=== PATIENT | female | born 1945 | race Caucasian/White ===

== ENCOUNTER 2017-10-21 08:38 | Emergency (ER) | payer MEDICARE, MEDICAID ==
[2017-10-21 09:12] VITALS: BP 166/89
[2017-10-21] MEDS ORDERED: Ondansetron 4 MG Tab.DIS PO ONE (09:17)
[2017-10-21] MEDS ORDERED: Acetaminophen Soln 650 MG/20.3 ML UD Cup PO ONE (09:17)
--- NOTE | 2017-10-21 09:22 | EDM.PDOC ---
ED HPI GENERAL MEDICAL PROBLEM - General Chief Complaint: Headache Stated Complaint: BAD HEADACHE Time Seen by Provider: 10/21/17 09:21 Source of Information: Reports: Patient History Limitations: Reports: No Limitations - History of Present Illness INITIAL COMMENTS - FREE TEXT/NARRATIVE: pt ended up with a headache in the middle of the nite. She had just started zantac 2 days ago. She was wondering if the headache was related to that. She is still nauseated today. She has not vomited. Onset: Today, Other (headache started in the nite. It is now going wenceslao. ) Duration: Hour(s): Location: Reports: Head, Neck, Abdomen Associated Symptoms: Reports: Headaches, Nausea/Vomiting Lower Back Pain Score (Numeric/FACES): 5 Posterior Headache Pain Score (Numeric/FACES): 9 - Related Data Allergies Allergy/AdvReac Type Severity Reaction Status Date / Time levofloxacin [From Levaquin] Allergy Rash Verified 10/21/17 08:50 nitrofurantoin Allergy Hives Verified 10/21/17 08:50 Penicillins Allergy Rash Verified 10/21/17 08:50 Sulfa (Sulfonamide Allergy Rash Verified 10/21/17 08:50 Antibiotics) oats AdvReac Stomach Verified 10/21/17 08:50 Upset Home Meds: Home Meds Alum Hydrox/Mag Hydrox/Simeth [Maalox Advanced] 15 ml PO ASDIRECTED 05/03/15 [ History] Mag Carb/Al Hydrox/Alginic Ac [Gaviscon Extra Strength Liquid] 30 ml PO BEDTIME 05/03/15 [History] Loperamide [Imodium AD] 2 mg PO ASDIRECTED PRN 05/07/15 [History] Sucralfate [Carafate] 1 gm PO Q6H 05/07/15 [History] Omeprazole [Prilosec] 40 mg PO DAILY 05/24/15 [History] Ranitidine [Zantac] 10 mg PO BID 10/21/17 [History] Past Medical History HEENT History: Reports: Glaucoma, Impaired Vision Cardiovascular History: Reports: Other (See Below) Other Cardiovascular History: rheumatic fever and rheumatic heart disease as child. 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: Musculoskeletal History: Reports: Other (See Below) Other Musculoskeletal History: Muscular dystrophy Neurological History: Reports: Headaches, Chronic Psychiatric History: Reports: Anxiety, Panic Attack Endocrine/Metabolic History: Reports: Other (See Below) Other Endocrine/Metabolic History: hyoglycemia- Hematologic History: Reports: Anemia Oncologic (Cancer) History: Reports: Other (See Below) Other Oncologic History: skin Dermatologic History: Reports: Melanoma, Other (See Below) Other Dermatologic History: skin lesions removed from lip, inner right thigh and left foot - Infectious Disease History Infectious Disease History: Reports: Chicken Pox, Measles, Mumps, Rheumatic Fever - Past Surgical History Head Surgeries/Procedures: Reports: None HEENT Surgical History: Reports: Oral Surgery Cardiovascular Surgical History: Reports: None GI Surgical History: Reports: Appendectomy, Cholecystectomy, EGD, Hernia Repair/ Other, Other (See Below) Endocrine Surgical History: Reports: None Neurological Surgical History: Reports: None Musculoskeletal Surgical History: Reports: None Oncologic Surgical History: Reports: None Dermatological Surgical History: Reports: Skin Biopsy Social & Family History - Family History Cardiac: Reports: CAD, Heart Valve Replacement, Hypertension, [place] GI: Reports: Cholelithiasis, GERD Oncologic: Reports: Lymphoma, Ovarian - Tobacco Use Smoking Status *Q: Former Smoker Years of Tobacco use: 40 Used Tobacco, but Quit: Yes Month/Year Tobacco Last Used: 1990 Second Hand Smoke Exposure: No - Caffeine Use Caffeine Use: Reports: Coffee, Tea - Recreational Drug Use Recreational Drug Use: No ED ROS GENERAL - Review of Systems Review Of Systems: See Below Constitutional: Reports: No Symptoms HEENT: Reports: No Symptoms Respiratory: Reports: No Symptoms Cardiovascular: Reports: No Symptoms Endocrine: Reports: No Symptoms GI/Abdominal: Reports: Other (pt does not have pain or heartburn. She is feeling nauseated. ) : Reports: No Symptoms Musculoskeletal: Reports: No Symptoms Skin: Reports: No Symptoms Neurological: Reports: No Symptoms - Physical Exam Exam: See Below Text/Narrative:: pt is alert and feels like her headache is getting better. She is still nauseated. She is on prilosec for her stomach. Exam Limited By: No Limitations General Appearance: Alert, Anxious, Moderate Distress Ears: Normal TMs Nose: Normal Inspection Throat/Mouth: Normal Inspection Head Exam: Atraumatic Neck: Tender Lateral Respiratory/Chest: No Respiratory Distress Cardiovascular: Regular Rate, Rhythm GI/Abdominal: Soft, Non-Tender (Female) Exam: Deferred Rectal (Female) Exam: Deferred Neuro Exam (Abbreviated): Alert, Oriented, Normal Cognition Back Exam: Muscle Spasm, Other ( chronic back pain) Psychiatric: Anxious Course - Vital Signs Last Recorded V/S: Last Vital Signs Temp 35.9 C 10/21/17 09:02 Pulse 107 H 10/21/17 09:02 Resp 16 10/21/17 09:02 BP 166/89 H 10/21/17 09:02 Pulse Ox 96 10/21/17 09:02 - Orders/Labs/Meds Meds: Medications Discontinued Medications Generic Name Dose Route Start Last Admin Trade Name Freq PRN Reason Stop Dose Admin Acetaminophen 650 mg 10/21/17 09:17 10/21/17 09:21 Tylenol PO 10/21/17 09:18 650 mg ONETIME ONE Administration Ondansetron HCl 4 mg 10/21/17 09:17 10/21/17 09:21 Zofran Odt PO 10/21/17 09:18 4 mg ONETIME ONE Administration - Re-Assessments/Exams Free Text/Narrative Re-Assessment/Exam: 10/21/17 09:52 pt was given zoforan and tylenol and she is feeling better at this time. Departure - Departure Time of Disposition: 09:52 Disposition: Home, Self-Care 01 Condition: Fair Clinical Impression: Nausea, Headache - Discharge Information Referrals: Adán Mayfield MD [Primary Care Provider] - Forms: ED Department Discharge Care Plan Goals: stop zantac, zoforan 4 mg q6h prn for nausea. continue other meds.
== END 2017-10-21 10:00 | disposition home or self-care (01) ==
LOC: JP.ED 08:38
DX: R51 Headache (principal); R11.0 Nausea; Z87.891 Personal history of nicotine dependence; K21.9 Gastro-esophageal reflux disease without esophagitis; Z79.899 Other long term (current) drug therapy; Z91.018 Allergy to other foods; Z88.1 Allergy status to other antibiotic agents; Z88.2 Allergy status to sulfonamides; Z88.0 Allergy status to penicillin; Z88.8 Allergy status to other drugs, medicaments and biological substances
CPT/HCPCS: 99284; A9270

== ENCOUNTER 2018-03-24 13:45 | Emergency (ER) | payer MEDICARE, MEDICAID ==
[2018-03-24 14:07] VITALS: BP 166/88
--- NOTE | 2018-03-24 14:32 | EDM.PDOC ---
ED HPI GENERAL MEDICAL PROBLEM - General Chief Complaint: Respiratory Problem Stated Complaint: HEAVINESS IN CHEST Time Seen by Provider: 03/24/18 14:30 Source of Information: Reports: Patient History Limitations: Reports: No Limitations - History of Present Illness INITIAL COMMENTS - FREE TEXT/NARRATIVE: pt began to feel achy during the nite. She then started to cough and feel tight in her hest. The coughing has been progrssive this afternoon. Onset: Other ( started last nite. ) Duration: Hour(s): Location: Reports: Abdomen Associated Symptoms: Reports: Cough, Other ( chest feels tight. ) - Related Data Allergies Allergy/AdvReac Type Severity Reaction Status Date / Time levofloxacin [From Levaquin] Allergy Rash Verified 03/24/18 14:10 nitrofurantoin Allergy Hives Verified 03/24/18 14:10 Penicillins Allergy Rash Verified 03/24/18 14:10 Sulfa (Sulfonamide Allergy Rash Verified 03/24/18 14:10 Antibiotics) oats AdvReac Stomach Verified 03/24/18 14:10 Upset Home Meds: Home Meds Alum Hydrox/Mag Hydrox/Simeth [Maalox Advanced] 15 ml PO ASDIRECTED 05/03/15 [ History] Mag Carb/Al Hydrox/Alginic Ac [Gaviscon Extra Strength Liquid] 30 ml PO BEDTIME 05/03/15 [History] Loperamide [Imodium AD] 2 mg PO ASDIRECTED PRN 05/07/15 [History] Sucralfate [Carafate] 1 gm PO Q6H PRN 05/07/15 [History] Omeprazole [Prilosec] 40 mg PO DAILY 05/24/15 [History] Ranitidine [Zantac] 10 mg PO BID 10/21/17 [History] Past Medical History HEENT History: Reports: Glaucoma, Impaired Vision Cardiovascular History: Reports: Other (See Below) Other Cardiovascular History: rheumatic fever and rheumatic heart disease as child. 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: Musculoskeletal History: Reports: Other (See Below) Other Musculoskeletal History: Muscular dystrophy Neurological History: Reports: Headaches, Chronic Psychiatric History: Reports: Anxiety, Panic Attack Endocrine/Metabolic History: Reports: Other (See Below) Other Endocrine/Metabolic History: hyoglycemia- Hematologic History: Reports: Anemia Oncologic (Cancer) History: Reports: Other (See Below) Other Oncologic History: skin Dermatologic History: Reports: Melanoma, Other (See Below) Other Dermatologic History: skin lesions removed from lip, inner right thigh and left foot - Infectious Disease History Infectious Disease History: Reports: Chicken Pox, Measles, Mumps, Rheumatic Fever - Past Surgical History Head Surgeries/Procedures: Reports: None HEENT Surgical History: Reports: Oral Surgery Cardiovascular Surgical History: Reports: None GI Surgical History: Reports: Appendectomy, Cholecystectomy, EGD, Hernia Repair/ Other, Other (See Below) Endocrine Surgical History: Reports: None Neurological Surgical History: Reports: None Musculoskeletal Surgical History: Reports: None Dermatological Surgical History: Reports: Skin Biopsy Social & Family History - Family History Cardiac: Reports: CAD, Heart Valve Replacement, Hypertension, [place] GI: Reports: Cholelithiasis, GERD Oncologic: Reports: Lymphoma, Ovarian - Tobacco Use Smoking Status *Q: Never Smoker - Caffeine Use Caffeine Use: Reports: Coffee, Tea ED ROS GENERAL - Review of Systems Review Of Systems: See Below Constitutional: Reports: Fever, Chills, Malaise HEENT: Reports: No Symptoms Respiratory: Reports: Cough, Other ( tight chest) Cardiovascular: Reports: No Symptoms Endocrine: Reports: No Symptoms GI/Abdominal: Reports: No Symptoms : Reports: No Symptoms ED EXAM, GENERAL - Physical Exam Exam: See Below Free Text/Narrative:: pt developed a cough and felt achy all over. She has a low grade temp at 99. She did not have a flu shot. Exam Limited By: No Limitations General Appearance: Alert, No Apparent Distress, Anxious Ears: Normal TMs Nose: Normal Inspection Throat/Mouth: Normal Inspection Head: Atraumatic Neck: Normal Inspection Respiratory/Chest: Crackles, Rhonchi, Other ( These were heard in the upper lung reid. ) Cardiovascular: Regular Rate, Rhythm GI/Abdominal: Soft, Non-Tender Course - Vital Signs Last Recorded V/S: Last Vital Signs Temp 37.2 C 03/24/18 14:18 Pulse 109 H 03/24/18 14:18 Resp 11 L 03/24/18 14:18 BP 166/88 H 03/24/18 14:18 Pulse Ox 97 03/24/18 14:18 - Orders/Labs/Meds Labs: Laboratory Tests 03/24/18 Range/Units 14:30 WBC 8.8 (4.5-11.0) K/uL RBC 4.53 (3.30-5.50) M/uL Hgb 13.7 (12.0-15.0) g/dL Hct 41.5 (36.0-48.0) % MCV 92 (80-98) fL MCH 30 (27-31) pg MCHC 33 (32-36) % Plt Count 312 (150-400) K/uL Neut % (Auto) 79 H (36-66) % Lymph % (Auto) 8 L (24-44) % [place] % (Auto) 10 H (2-6) % Eos % (Auto) 3 (2-4) % Baso % (Auto) 1 (0-1) % - Re-Assessments/Exams Free Text/Narrative Re-Assessment/Exam: 03/24/18 15:08 Influ a and b were neg. Her wbc was not markedly elevated. Departure - Departure Time of Disposition: 15:10 Disposition: Home, Self-Care 01 Condition: Fair Clinical Impression: Bronchitis - Discharge Information Referrals: Adán Mayfield MD [Primary Care Provider] - Forms: ED Department Discharge Care Plan Goals: push fluids, cool mist humidifier, zithromax-- ravinder chinchilla ac 1 tsp q6h prn for cough.
== END 2018-03-24 15:21 | disposition home or self-care (01) ==
LOC: JP.ED 13:45
DX: J40 Bronchitis, not specified as acute or chronic (principal); K21.9 Gastro-esophageal reflux disease without esophagitis; F41.9 Anxiety disorder, unspecified; Z88.1 Allergy status to other antibiotic agents; Z88.0 Allergy status to penicillin; Z88.2 Allergy status to sulfonamides; Z79.899 Other long term (current) drug therapy
CPT/HCPCS: 36415; 85025; 87804; 87804-59; 99285

== ENCOUNTER 2018-03-28 11:55 | Emergency (ER) | payer MEDICARE, MEDICAID ==
[2018-03-28 13:12] VITALS: BP 137/78
--- NOTE | 2018-03-28 13:26 | EDM.PDOC ---
ED HPI GENERAL MEDICAL PROBLEM - General Chief Complaint: Respiratory Problem Stated Complaint: CHEST COLD Time Seen by Provider: 03/28/18 13:19 Source of Information: Reports: Patient, Old Records, RN Notes Reviewed History Limitations: Reports: No Limitations - History of Present Illness INITIAL COMMENTS - FREE TEXT/NARRATIVE: 72-year-old female presents emergency department day complaint of shortness of breath she was in the ED 5 days prior diagnosed with bronchitis started on antibiotic of azithromycin she states is completed a course of antibiotics however just does not feel any better and feels she is getting worse - Related Data Allergies Allergy/AdvReac Type Severity Reaction Status Date / Time levofloxacin [From Levaquin] Allergy Rash Verified 03/28/18 13:12 nitrofurantoin Allergy Hives Verified 03/28/18 13:12 Penicillins Allergy Rash Verified 03/28/18 13:12 Sulfa (Sulfonamide Allergy Rash Verified 03/28/18 13:12 Antibiotics) oats AdvReac Stomach Verified 03/28/18 13:12 Upset Home Meds: Home Meds Alum Hydrox/Mag Hydrox/Simeth [Maalox Advanced] 15 ml PO ASDIRECTED 05/03/15 [ History] Mag Carb/Al Hydrox/Alginic Ac [Gaviscon Extra Strength Liquid] 30 ml PO BEDTIME 05/03/15 [History] Loperamide [Imodium AD] 2 mg PO ASDIRECTED PRN 05/07/15 [History] Sucralfate [Carafate] 1 gm PO Q6H PRN 05/07/15 [History] Omeprazole [Prilosec] 40 mg PO DAILY 05/24/15 [History] Ranitidine [Zantac] 10 mg PO BID PRN 10/21/17 [History] Albuterol [Proventil HFA] 2 puff INH Q4H PRN #1 inhaler 03/28/18 [Rx] Azithromycin [Zithromax 200 MG/5 ML Susp] 6 ml PO DAILY 03/28/18 [History] Past Medical History HEENT History: Reports: Glaucoma, Impaired Vision Cardiovascular History: Reports: Other (See Below) Other Cardiovascular History: rheumatic fever and rheumatic heart disease as child. 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: Musculoskeletal History: Reports: Other (See Below) Other Musculoskeletal History: Muscular dystrophy Neurological History: Reports: Headaches, Chronic Psychiatric History: Reports: Anxiety, Panic Attack Endocrine/Metabolic History: Reports: Other (See Below) Other Endocrine/Metabolic History: hyoglycemia- Hematologic History: Reports: Anemia Oncologic (Cancer) History: Reports: Other (See Below) Other Oncologic History: skin Dermatologic History: Reports: Melanoma, Other (See Below) Other Dermatologic History: skin lesions removed from lip, inner right thigh and left foot - Infectious Disease History Infectious Disease History: Reports: Chicken Pox, Measles, Mumps, Rheumatic Fever - Past Surgical History HEENT Surgical History: Reports: Oral Surgery GI Surgical History: Reports: Appendectomy, Cholecystectomy, EGD, Hernia Repair/ Other, Other (See Below) Dermatological Surgical History: Reports: Skin Biopsy Social & Family History - Family History Cardiac: Reports: CAD, Heart Valve Replacement, Hypertension, [place] GI: Reports: Cholelithiasis, GERD Oncologic: Reports: Lymphoma, Ovarian - Tobacco Use Smoking Status *Q: Never Smoker - Caffeine Use Caffeine Use: Reports: Coffee, Tea - Recreational Drug Use Recreational Drug Use: No ED ROS GENERAL - Review of Systems Review Of Systems: See Below Constitutional: Reports: Weakness. Denies: Fever, Chills HEENT: Reports: No Symptoms Respiratory: Reports: Shortness of Breath, Cough, Sputum (Yellow) Cardiovascular: Reports: Dyspnea on Exertion GI/Abdominal: Reports: No Symptoms : Reports: No Symptoms ED EXAM, GENERAL - Physical Exam Exam: See Below Exam Limited By: No Limitations General Appearance: Alert, WD/WN, No Apparent Distress Throat/Mouth: Normal Inspection, Normal Lips, Normal Teeth, Normal Gums, Normal Oropharynx, Normal Voice, No Airway Compromise Head: Atraumatic, Normocephalic Neck: Normal Inspection, Supple, Non-Tender, Full Range of Motion Respiratory/Chest: No Respiratory Distress, Lungs Clear, Normal Breath Sounds, No Accessory Muscle Use, Chest Non-Tender Cardiovascular: Regular Rate, Rhythm, No Murmur GI/Abdominal: Soft, Non-Tender Course - Vital Signs Last Recorded V/S: Last Vital Signs Temp 96.0 F 03/28/18 13:17 Pulse 89 03/28/18 13:17 Resp 16 03/28/18 13:17 BP 137/78 03/28/18 13:17 Pulse Ox 96 03/28/18 13:17 - Orders/Labs/Meds Orders: Active Orders 24 hr Category Date Time Status RT Aerosol Therapy [RC] ASDIRECTED Care 03/28/18 13:53 Active Chest 2V [CR] Urgent Exams 03/28/18 13:24 Taken Labs: Laboratory Tests 03/28/18 03/28/18 03/28/18 Range/Units 13:42 13:42 13:42 WBC 3.5 L (4.5-11.0) K/uL RBC 4.57 (3.30-5.50) M/uL Hgb 14.2 (12.0-15.0) g/dL Hct 42.2 (36.0-48.0) % MCV 92 (80-98) fL MCH 31 (27-31) pg MCHC 34 (32-36) % Plt Count 265 (150-400) K/uL Neut % (Auto) 42 (36-66) % Lymph % (Auto) 31 (24-44) % [place] % (Auto) 25 H (2-6) % Eos % (Auto) 1 L (2-4) % Baso % (Auto) 1 (0-1) % D-Dimer, Quantitative < 100 (0.0-400.0) ng/mL Sodium 138 L (140-148) mmol/L Potassium 3.9 (3.6-5.2) mmol/L Chloride 100 (100-108) mmol/L Carbon Dioxide 31 (21-32) mmol/L Anion Gap 10.9 (5.0-14.0) mmol/L BUN 13 (7-18) mg/dL Creatinine 0.8 (0.6-1.0) mg/dL Est Cr Clr Drug Dosing 51.03 mL/min Estimated GFR (MDRD) > 60 (>60) Glucose 112 H (74-106) mg/dL Calcium 8.9 (8.5-10.1) mg/dL Total Bilirubin 0.3 (0.2-1.0) mg/dL AST 22 (15-37) U/L ALT 25 (12-78) U/L Alkaline Phosphatase 148 H (46-116) U/L Total Protein 6.7 (6.4-8.2) g/dL Albumin 3.2 L (3.4-5.0) g/dL Globulin 3.5 (2.3-3.5) g/dL Albumin/Globulin Ratio 0.9 L (1.2-2.2) Meds: Medications Discontinued Medications Generic Name Dose Route Start Last Admin Trade Name Cecily PRN Reason Stop Dose Admin Albuterol/Ipratropium 3 ml 03/28/18 13:52 03/28/18 14:04 Duoneb 3.0-0.5 Mg/3 Ml NEB 03/28/18 13:53 3 ml ONETIME ONE Administration Departure - Departure Time of Disposition: 14:44 Disposition: Home, Self-Care 01 Condition: Fair Clinical Impression: Bronchitis - Discharge Information Prescriptions: Albuterol [Proventil HFA] 2 puff INH Q4H PRN #1 inhaler PRN Reason: Shortness Of Breath Referrals: Adán Mayfield MD [Primary Care Provider] - Forms: ED Department Discharge Additional Instructions: Use your albuterol inhaler as needed, this medication was faxed to [facility], please follow-up with your primary care the next 3-5 days for reevaluation - My Orders Last 24 Hours: My Active Orders 03/28/18 13:24 Chest 2V [CR] Urgent 03/28/18 13:53 RT Aerosol Therapy [RC] ASDIRECTED - Assessment/Plan Last 24 Hours: My Active Orders 03/28/18 13:24 Chest 2V [CR] Urgent 03/28/18 13:53 RT Aerosol Therapy [RC] ASDIRECTED Plan: Assessment Acuity = acute Site and laterality = bronchitis Etiology = unknown etiology Manifestations = weakness, dyspnea Location of injury = Home Lab values = CBC, CMP, d-dimer all within normal limits lab values are similar to prior lab values 5 days ago chest x-ray shows no acute process official read radiology is pending Plan She had some improvement with albuterol inhaler prescription written for albuterol MDI 2 puffs every 4-6 hours when necessary 1 unit follow-up primary care 3-5 days if no improvement This note was dictated using [employer] voice recognition software please call with any questions on syntax or grammar.
[2018-03-28] MEDS ORDERED: Albuterol/Ipratropium 3.0-0.5 MG/3 ML Neb Soln NEB ONE (13:52)
--- NOTE | 2018-03-28 15:01 | CRLCR ---
INDICATION: Shortness of breath TECHNIQUE: Chest radiograph 2 views COMPARISON: None FINDINGS: Mediastinum: The mediastinum is normal in appearance. The heart silhouette is normal in size and morphology. Lung: Patchy airspace opacity with architectural distortion is seen in the medial right lung base. Findings may be due to scarring and/or atelectasis. No sign of pleural effusion seen. No pneumothorax is identified. Musculoskeletal: Unremarkable for age. IMPRESSION: 1. Patchy airspace opacity with architectural distortion is seen in the medial right lung base. Findings may be due to scarring and/or atelectasis. Follow-up chest radiograph in 2-3 months is recommended to document stability or outpatient chest CT evaluation is an alternative. Dictated by Alfa Linder MD @ 03/28/2018 3:00:36 PM Dictated by: Alfa Linder MD @ 03/28/2018 15:00:39 (Electronically Signed)
== END 2018-03-28 15:00 | disposition home or self-care (01) ==
LOC: JP.ED 11:55
DX: J40 Bronchitis, not specified as acute or chronic (principal); K21.9 Gastro-esophageal reflux disease without esophagitis; I10 Essential (primary) hypertension; I25.2 Old myocardial infarction; Z95.4 Presence of other heart-valve replacement; Z88.1 Allergy status to other antibiotic agents; Z88.2 Allergy status to sulfonamides; Z79.899 Other long term (current) drug therapy
CPT/HCPCS: 36415; 71046; 80053; 85025; 85379; 94640; 99285-25; J7620-GY

== ENCOUNTER 2020-02-25 20:23 | Emergency (ER) | payer MEDICARE, MEDICAID ==
[2020-02-25 20:49] VITALS: BP 164/89; PULSE 90
--- NOTE | 2020-02-25 21:00 | EDM.PDOC ---
ED HPI GENERAL MEDICAL PROBLEM - General Chief Complaint: Genitourinary Problem Stated Complaint: MEDICAL Time Seen by Provider: 02/25/20 20:50 Source of Information: Reports: Patient History Limitations: Reports: No Limitations - History of Present Illness INITIAL COMMENTS - FREE TEXT/NARRATIVE: 74-year-old patient, wheelchair-bound who chronically self caths was doing her perineal washing tonight when she noticed some fresh blood in the area. She thought it was a vaginal source, she has no pain or other symptoms. This has not happened before so it scared her. - Related Data Allergies Allergy/AdvReac Type Severity Reaction Status Date / Time lactose Allergy Diarrhea Verified 02/25/20 20:44 levofloxacin [From Levaquin] Allergy Rash Verified 02/25/20 20:44 nitrofurantoin Allergy Hives Verified 02/25/20 20:44 Penicillins Allergy Rash Verified 02/25/20 20:44 Sulfa (Sulfonamide Allergy Rash Verified 02/25/20 20:44 Antibiotics) oats AdvReac Stomach Verified 02/25/20 20:44 Upset Home Meds: Home Meds Multivitamin [Multivitamins] 1 each PO DAILY 02/25/20 [History] Past Medical History HEENT History: Reports: Glaucoma, Impaired Vision, Other (See Below) Other HEENT History: upper and lower dentures Cardiovascular History: Reports: Other (See Below) Other Cardiovascular History: rheumatic fever and rheumatic heart disease as child. 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: Musculoskeletal History: Reports: Other (See Below) Other Musculoskeletal History: Muscular dystrophy Neurological History: Reports: Headaches, Chronic Psychiatric History: Reports: Anxiety, Panic Attack Endocrine/Metabolic History: Reports: Other (See Below) Other Endocrine/Metabolic History: hyoglycemia- Hematologic History: Reports: Anemia Oncologic (Cancer) History: Reports: Other (See Below) Other Oncologic History: skin Dermatologic History: Reports: Melanoma, Other (See Below) Other Dermatologic History: skin lesions removed from lip, inner right thigh and left foot - Infectious Disease History Infectious Disease History: Reports: Chicken Pox, Measles, Mumps, Rubella - Past Surgical History HEENT Surgical History: Reports: Oral Surgery Cardiovascular Surgical History: Reports: None Respiratory Surgical History: Reports: None GI Surgical History: Reports: Appendectomy, Cholecystectomy, EGD, Hernia Repair/Other, Other (See Below) Other GI Surgeries/Procedures: esophageal repair. Esophageal dilation per Dr. Ge 04/17/2015 Female Surgical History: Reports: Hysterectomy, Other (See Below) Other Female Surgeries/Procedures: removal of left fallopian tube and ovary due to IUD Endocrine Surgical History: Reports: None Neurological Surgical History: Reports: None Musculoskeletal Surgical History: Reports: None Oncologic Surgical History: Reports: None Dermatological Surgical History: Reports: Skin Biopsy Social & Family History - Family History Cardiac: Reports: CAD, Heart Valve Replacement, Hypertension, [place] GI: Reports: Cholelithiasis, GERD Oncologic: Reports: Lymphoma, Ovarian - Tobacco Use Tobacco Use Status *Q: Former Tobacco User Used Tobacco, but Quit: Yes Month/Year Tobacco Last Used: 1992 - Caffeine Use Caffeine Use: Reports: Coffee, Tea - Recreational Drug Use Recreational Drug Use: No ED ROS GENERAL - Review of Systems Review Of Systems: See Below Constitutional: Denies: Fever, Chills Respiratory: Denies: Shortness of Breath Cardiovascular: Denies: Chest Pain GI/Abdominal: Denies: Abdominal Pain, Nausea, Vomiting : Reports: Frequency. Denies: Dysuria Neurological: Denies: Headache ED EXAM, RENAL/ - Physical Exam Exam: See Below General Appearance: Alert, No Apparent Distress Respiratory/Chest: No Respiratory Distress (Female) Exam: Normal External Exam, Other (No evidence of bleeding from the urethra, labia, and no blood on digital exam of the vaginal area. She was tender.) Neurological: Alert, Oriented Psychiatric: Normal Affect, Normal Mood Skin Exam: Warm, Dry Course - Vital Signs Last Recorded V/S: Last Vital Signs Temp 98.1 F 02/25/20 20:48 Pulse 90 02/25/20 20:48 Resp 15 02/25/20 20:48 BP 164/89 H 02/25/20 20:48 Pulse Ox 98 02/25/20 20:48 - Orders/Labs/Meds Labs: Laboratory Tests 02/25/20 Range/Units 21:03 Urine Color Yellow (YELLOW) Urine Appearance Clear (CLEAR) Urine pH 7.5 (5.0-8.0) Ur Specific [place] 1.020 (1.008-1.030) Urine Protein Negative (NEGATIVE) mg/dL Urine Glucose (UA) Negative (NEGATIVE) mg/dL Urine Ketones Negative (NEGATIVE) mg/dL Urine Occult Blood Trace-intact H (NEGATIVE) Urine Nitrite Negative (NEGATIVE) Urine Bilirubin Negative (NEGATIVE) Urine Urobilinogen 0.2 (0.2-1.0) EU/dL Ur Leukocyte Esterase Negative (NEGATIVE) Urine RBC 0-5 (0-5) Urine WBC 0-5 (0-5) Ur Epithelial Cells Rare Amorphous Sediment Not seen Urine Bacteria Not seen Urine Mucus Not seen - Re-Assessments/Exams Free Text/Narrative Re-Assessment/Exam: 02/25/20 21:27 A mini cath UA was obtained which was clear, no blood. I would recheck with your primary sometime later this week if it is persistent, she likely has some vaginal atrophy and could use a ORACLE REPORTS DEVELOPER exam. Departure - Departure Time of Disposition: 21:55 Disposition: Home, Self-Care 01 Clinical Impression: Vaginal bleeding - Discharge Information Instructions: Postmenopausal Bleeding Referrals: Adán Mayfield MD [Primary Care Provider] - Forms: ED Department Discharge Care Plan Goals: Recheck with your regular doctor later this week if bleeding persists, a more formal vaginal exam and possibly topical estrogen treatment may be necessary if persistent. Sepsis Event Note (ED) - Evaluation Sepsis Screening Result: No Definite Risk - Focused Exam Vital Signs: Vital Signs Temp Pulse Resp BP Pulse Ox 02/25/20 20:48 98.1 F 90 15 164/89 H 98
== END 2020-02-25 21:56 | disposition home or self-care (01) ==
LOC: JP.ED 20:23
DX: N93.9 Abnormal uterine and vaginal bleeding, unspecified (principal); Z87.891 Personal history of nicotine dependence; Z91.011 Allergy to milk products; Z88.1 Allergy status to other antibiotic agents; Z88.0 Allergy status to penicillin; Z88.2 Allergy status to sulfonamides; Z91.018 Allergy to other foods
CPT/HCPCS: 81001; 99282; 99284

== ENCOUNTER 2020-03-07 18:09 | Emergency (ER) | payer MEDICARE, MEDICAID ==
[2020-03-07] MEDS ORDERED: LORazepam 0.5 MG Tab PO ONE (18:23)
--- NOTE | 2020-03-07 18:31 | EDM.PDOC ---
ED HPI GENERAL MEDICAL PROBLEM - General Chief Complaint: General Stated Complaint: ALLERGIC REACTION TO COVID VACCINE Time Seen by Provider: 03/07/20 18:20 Source of Information: Reports: Patient History Limitations: Reports: No Limitations - History of Present Illness INITIAL COMMENTS - FREE TEXT/NARRATIVE: Catherine is a 74-year-old female presenting to the ER with complaint of tachycardia, tremors, and anxiety. The patient received her first Covid 19 vaccine today at [facility] and was feeling well until she got home when she started to feel her heart was racing. She also started to generally not feel well. She denies any difficulty breathing or shortness of breath, difficulty swallowing, sore throat, cough, chest pain, abdominal pain, nausea or vomiting, or diarrhea. 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 Upon arrival to the ED she was noted to have a heart rate between 101 - 110 bpm. Her tremor resembles shivering although she is afebrile. - Related Data Allergies Allergy/AdvReac Type Severity Reaction Status Date / Time lactose Allergy Diarrhea Verified 03/07/20 18:27 levofloxacin [From Levaquin] Allergy Rash Verified 03/07/20 18:27 nitrofurantoin Allergy Hives Verified 03/07/20 18:27 Penicillins Allergy Rash Verified 03/07/20 18:27 Sulfa (Sulfonamide Allergy Rash Verified 03/07/20 18:27 Antibiotics) oats AdvReac Stomach Verified 03/07/20 18:27 Upset Home Meds: Home Meds Multivitamin [Multivitamins] 1 each PO DAILY 02/25/20 [History] Past Medical History HEENT History: Reports: Glaucoma, Impaired Vision, Other (See Below) Other HEENT History: upper and lower dentures Cardiovascular History: Reports: Other (See Below) Other Cardiovascular History: rheumatic fever and rheumatic heart disease as child. 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: Musculoskeletal History: Reports: Other (See Below) Other Musculoskeletal History: Muscular dystrophy Neurological History: Reports: Headaches, Chronic Psychiatric History: Reports: Anxiety, Panic Attack Endocrine/Metabolic History: Reports: Other (See Below) Other Endocrine/Metabolic History: hyoglycemia- Hematologic History: Reports: Anemia Oncologic (Cancer) History: Reports: Other (See Below) Other Oncologic History: skin Dermatologic History: Reports: Melanoma, Other (See Below) Other Dermatologic History: skin lesions removed from lip, inner right thigh and left foot - Infectious Disease History Infectious Disease History: Reports: Chicken Pox, Measles, Mumps, Rubella - Past Surgical History HEENT Surgical History: Reports: Oral Surgery Cardiovascular Surgical History: Reports: None Respiratory Surgical History: Reports: None GI Surgical History: Reports: Appendectomy, Cholecystectomy, EGD, Hernia Repair/Other, Other (See Below) Other GI Surgeries/Procedures: esophageal repair. Esophageal dilation per Dr. Ge 04/17/2015 Female Surgical History: Reports: Hysterectomy, Other (See Below) Other Female Surgeries/Procedures: removal of left fallopian tube and ovary due to IUD Endocrine Surgical History: Reports: None Neurological Surgical History: Reports: None Musculoskeletal Surgical History: Reports: None Oncologic Surgical History: Reports: None Dermatological Surgical History: Reports: Skin Biopsy Social & Family History - Family History Cardiac: Reports: CAD, Heart Valve Replacement, Hypertension, [place] GI: Reports: Cholelithiasis, GERD Oncologic: Reports: Lymphoma, Ovarian - Caffeine Use Caffeine Use: Reports: Coffee, Tea ED ROS GENERAL - Review of Systems Review Of Systems: See Below Constitutional: Reports: Chills, Malaise, Decreased Appetite HEENT: Reports: No Symptoms Respiratory: Reports: No Symptoms Cardiovascular: Reports: Palpitations Endocrine: Reports: Low Glucose (Possibly. The patient did eating a nut roll and drink juice prior to coming in.) GI/Abdominal: Reports: No Symptoms : Reports: No Symptoms Musculoskeletal: Reports: No Symptoms Skin: Reports: No Symptoms Neurological: Reports: Tremors Psychiatric: Reports: Anxiety Hematologic/Lymphatic: Reports: No Symptoms Immunologic: Reports: No Symptoms ED EXAM, GENERAL - Physical Exam Exam: See Below Exam Limited By: No Limitations General Appearance: Alert, WD/WN, No Apparent Distress Eye Exam: Bilateral Eye: EOMI, PERRL Throat/Mouth: Normal Inspection, Normal Oropharynx, Normal Voice Head: Atraumatic, Normocephalic Neck: Normal Inspection, Supple, Non-Tender Respiratory/Chest: No Respiratory Distress, Lungs Clear, Normal Breath Sounds, No Accessory Muscle Use, Chest Non-Tender Cardiovascular: Normal Peripheral Pulses, Regular Rate, Rhythm, No Edema, No Murmur Peripheral Pulses: 2+: Radial (L), Radial (R) GI/Abdominal: Normal Bowel Sounds, Soft, Non-Tender, No Abnormal Bruit Back Exam: Normal Inspection, Full Range of Motion Extremities: Normal Inspection, Normal Range of Motion, Non-Tender, Normal Capillary Refill Neurological: Alert, Oriented, CN II-XII Intact, Normal Cognition, No Motor/Sensory Deficits Psychiatric: Anxious Skin Exam: Warm, Dry, Intact, Normal Color, Other (Minimal tenderness and no induration at the site of the vaccination.) Lymphatic: No Adenopathy #1 Interpretation EKG Date: 03/07/20 Time: 18:22 Rhythm: NSR Rate (Beats/Min): 97 [place]: Normal P-Wave: Present QRS: Normal (Poor R wave progression in the precordial leads.) ST-T: Normal QT: Normal Comparison: NA - No Prior EKG Course - Vital Signs Last Recorded V/S: Last Vital Signs Temp 36.3 C 03/07/20 18:23 Pulse 112 H 03/07/20 18:23 Resp 24 H 03/07/20 18:23 BP 144/89 H 03/07/20 18:23 Pulse Ox 99 03/07/20 18:23 - Orders/Labs/Meds Orders: Active Orders 24 hr Category Date Time Status EKG Documentation Completion [RC] ASDIRECTED Care 03/07/20 18:19 Active EKG 12 Lead [EK] Routine Ther 03/07/20 18:17 Ordered Labs: Laboratory Tests 03/07/20 03/07/20 Range/Units 18:36 18:36 WBC 7.0 (4.5-11.0) K/uL RBC 4.35 (3.30-5.50) M/uL Hgb 13.7 (12.0-15.0) g/dL Hct 41.0 (36.0-48.0) % MCV 94 (80-98) fL MCH 32 H (27-31) pg MCHC 33 (32-36) % Plt Count 360 (150-400) K/uL Neut % (Auto) 57 (36-66) % Lymph % (Auto) 31 (24-44) % [place] % (Auto) 8 H (2-6) % Eos % (Auto) 4 (2-4) % Baso % (Auto) 1 (0-1) % Sodium 144 (140-148) mmol/L Potassium 4.1 (3.6-5.2) mmol/L Chloride 106 (100-108) mmol/L Carbon Dioxide 25 (21-32) mmol/L Anion Gap 13.2 (5.0-14.0) mmol/L BUN 19 H (7-18) mg/dL Creatinine 0.9 (0.6-1.0) mg/dL Est Cr Clr Drug Dosing 43.99 mL/min Estimated GFR (MDRD) > 60 (>60) Glucose 142 H (74-106) mg/dL Calcium 8.9 (8.5-10.1) mg/dL Total Bilirubin 0.2 (0.2-1.0) mg/dL AST 18 (15-37) U/L ALT 23 (12-78) U/L Alkaline Phosphatase 161 H (46-116) U/L C-Reactive Protein 0.26 (0.0-0.3) mg/dL Total Protein 6.5 (6.4-8.2) g/dL Albumin 3.3 L (3.4-5.0) g/dL Globulin 3.2 (2.3-3.5) g/dL Albumin/Globulin Ratio 1.0 L (1.2-2.2) Meds: Medications Discontinued Medications Generic Name Dose Route Start Last Admin Trade Name Cecily PRN Reason Stop Dose Admin Lorazepam 0.5 mg 03/07/20 18:23 03/07/20 18:35 Ativan PO 03/07/20 18:24 0.5 mg ONETIME ONE Administration - Re-Assessments/Exams Free Text/Narrative Re-Assessment/Exam: 03/07/20 19:30 I reviewed the patient's labs which are unremarkable for any specific findings. We did give the patient lorazepam 0.5 mg which has abated all of her symptoms. I do believe that a majority of her complaints were based around her anxiety. As she is back to baseline, I believe that she is suitable for discharge home. I did advise her should she develop any pain or swelling at the site that she could take a little Benadryl to help with that. Indications return to the ED were discussed and patient was discharged in satisfactory condition. Departure - Departure Time of Disposition: 19:31 Disposition: Home, Self-Care 01 Condition: Good Clinical Impression: Anxiety - Discharge Information *PRESCRIPTION DRUG MONITORING PROGRAM REVIEWED*: Not Applicable *COPY OF PRESCRIPTION DRUG MONITORING REPORT IN PATIENT TANYA: Not Applicable Referrals: Adán Mayfield MD [Primary Care Provider] - Forms: ED Department Discharge Care Plan Goals: You may take Benadryl 25 mg by mouth if you have any burning, swelling, or discomfort at the injection site of your COVID-19 test. Should you develop any shortness of breath or chest pain please return to the ED immediately. Sepsis Event Note (ED) - Focused Exam Vital Signs: Vital Signs Temp Pulse Resp BP Pulse Ox 03/07/20 18:23 36.3 C 112 H 24 H 144/89 H 99 - Problem List & Annotations (1) Anxiety SNOMED Code(s): 26306451 Code(s): F41.9 - ANXIETY DISORDER, UNSPECIFIED Status: Acute Priority: High Current Visit: Yes - Problem List Review Problem List Initiated/Reviewed/Updated: Yes - My Orders Last 24 Hours: My Active Orders 03/07/20 18:17 EKG 12 Lead [EK] Routine 03/07/20 18:19 EKG Documentation Completion [RC] ASDIRECTED - Assessment/Plan Last 24 Hours: My Active Orders 03/07/20 18:17 EKG 12 Lead [EK] Routine 03/07/20 18:19 EKG Documentation Completion [RC] ASDIRECTED
[2020-03-07 18:41] VITALS: BP 144/89; PULSE 112
== END 2020-03-07 19:40 | disposition home or self-care (01) ==
LOC: JP.ED 18:09
DX: F41.9 Anxiety disorder, unspecified (principal); Z88.0 Allergy status to penicillin; Z88.2 Allergy status to sulfonamides; Z91.018 Allergy to other foods; Z88.1 Allergy status to other antibiotic agents; Z88.8 Allergy status to other drugs, medicaments and biological substances
CPT/HCPCS: 36415; 80053; 85025; 86140; 93005; 99285; A9270; 93010; 99283

== ENCOUNTER 2020-05-19 20:50 | Emergency (ER) | payer MEDICARE, MEDICAID ==
[2020-05-19 21:35] VITALS: BP 101/64; PULSE 82
--- NOTE | 2020-05-19 22:32 | EDM.PDOC ---
ED HPI GENERAL MEDICAL PROBLEM - General Chief Complaint: Abdominal Pain Stated Complaint: ABD PAIN Time Seen by Provider: 05/19/20 22:31 Source of Information: Reports: Patient History Limitations: Reports: No Limitations - History of Present Illness INITIAL COMMENTS - FREE TEXT/NARRATIVE: Patient presents to the ER today due to crampy, lower abdominal pain that when it occurs she states is 10/10 in nature--at time of my exam she is noted to have no pain. she denies any associated symptoms--no N/V, F/C, UTI sx; has been eating her normal diet today. she states last night it started, she felt bad but was fine this morning, ate breakfast and she & son went out all day on errands. Pain returned this evening so she came to the ER. she reports feeling generalized weakness and hot flashes with pain episodes PMH--mitochondria myopathy, hypoglycemia Meds--MVI, vit D, vit C, B-12 complex Allergies--PCN, Sulfa, levoquin, nitrofuritonin Tob--former EtOH/Drugs--denies Abdomen Pain Score (Numeric/FACES): 10 - Related Data Allergies Allergy/AdvReac Type Severity Reaction Status Date / Time lactose Allergy Diarrhea Verified 05/19/20 21:35 levofloxacin [From Levaquin] Allergy Rash Verified 05/19/20 21:35 nitrofurantoin Allergy Hives Verified 05/19/20 21:35 Penicillins Allergy Rash Verified 05/19/20 21:35 Sulfa (Sulfonamide Allergy Rash Verified 05/19/20 21:35 Antibiotics) oats AdvReac Stomach Verified 05/19/20 21:35 Upset Home Meds: Home Meds Multivitamin [Multivitamins] 1 each PO DAILY 02/25/20 [History] Past Medical History HEENT History: Reports: Glaucoma, Impaired Vision, Other (See Below) Other HEENT History: upper and lower dentures Cardiovascular History: Reports: Other (See Below) Other Cardiovascular History: rheumatic fever and rheumatic heart disease as child. 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: Musculoskeletal History: Reports: Other (See Below) Other Musculoskeletal History: Muscular dystrophy Neurological History: Reports: Headaches, Chronic Psychiatric History: Reports: Anxiety, Panic Attack Endocrine/Metabolic History: Reports: Other (See Below) Other Endocrine/Metabolic History: hyoglycemia- Hematologic History: Reports: Anemia Oncologic (Cancer) History: Reports: Other (See Below) Other Oncologic History: skin Dermatologic History: Reports: Melanoma, Other (See Below) Other Dermatologic History: skin lesions removed from lip, inner right thigh and left foot - Infectious Disease History Infectious Disease History: Reports: Chicken Pox, Measles, Mumps, Rheumatic Fever, Rubella - Past Surgical History Head Surgeries/Procedures: Reports: None HEENT Surgical History: Reports: Oral Surgery Cardiovascular Surgical History: Reports: None Respiratory Surgical History: Reports: None GI Surgical History: Reports: Appendectomy, Cholecystectomy, EGD, Hernia Repair/Other, Other (See Below) Other GI Surgeries/Procedures: esophageal repair. Esophageal dilation per Dr. Ge 04/17/2015 Female Surgical History: Reports: Hysterectomy, Other (See Below) Other Female Surgeries/Procedures: removal of left fallopian tube and ovary due to IUD Endocrine Surgical History: Reports: None Neurological Surgical History: Reports: None Musculoskeletal Surgical History: Reports: None Oncologic Surgical History: Reports: None Dermatological Surgical History: Reports: Skin Biopsy Social & Family History - Family History Cardiac: Reports: CAD, Heart Valve Replacement, Hypertension, [place] GI: Reports: Cholelithiasis, GERD Oncologic: Reports: Lymphoma, Ovarian - Tobacco Use Tobacco Use Status *Q: Former Tobacco User Used Tobacco, but Quit: Yes Month/Year Tobacco Last Used: 1992 - Caffeine Use Caffeine Use: Reports: Coffee - Recreational Drug Use Recreational Drug Use: No ED ROS GENERAL - Review of Systems Review Of Systems: See Below Constitutional: Reports: Weakness. Denies: Fever, Chills HEENT: Reports: No Symptoms Respiratory: Reports: No Symptoms Cardiovascular: Reports: No Symptoms Endocrine: Reports: No Symptoms GI/Abdominal: Reports: Abdominal Pain. Denies: Anorexia, Constipation, Diarrhea, Decreased Appetite, Difficulty Swallowing, Distension, Nausea, Vomiting : Reports: No Symptoms. Denies: Dysuria, Flank Pain, Frequency, Urgency Skin: Reports: No Symptoms Neurological: Reports: No Symptoms Psychiatric: Reports: No Symptoms Hematologic/Lymphatic: Reports: No Symptoms Immunologic: Reports: No Symptoms ED EXAM, GI/ABD - Physical Exam Exam: See Below Exam Limited By: No Limitations General Appearance: Alert, No Apparent Distress Eyes: Bilateral: Normal Appearance, EOMI Ears: Normal External Exam Nose: Normal Inspection Throat/Mouth: Normal Inspection, Normal Lips, Normal Oropharynx, Normal Voice, No Airway Compromise Head: Atraumatic, Normocephalic Neck: Normal Inspection, Supple, Non-Tender, Full Range of Motion Respiratory/Chest: No Respiratory Distress, Lungs Clear, Normal Breath Sounds, No Accessory Muscle Use Cardiovascular: Normal Peripheral Pulses, Regular Rate, Rhythm, No Edema, No Murmur GI/Abdominal Exam: Normal Bowel Sounds, Soft, Non-Tender, No Distention. No: Guarding, Rebound (Female) Exam: Deferred Rectal (Female) Exam: Deferred Back Exam: Normal Inspection Extremities: Normal Inspection, Normal Capillary Refill. No: No Pedal Edema Neurological: Alert, Oriented, Normal Cognition Psychiatric: Normal Affect, Normal Mood Skin Exam: Warm, Dry, Intact, Normal Color Course - Vital Signs Text/Narrative:: 0034--labs reviewed, noted for leukocytosis but no apparent source as negative abdominal exam and UA only noted for ketones & blood. given no nausea/vomiting, change in appetite will encourage increase fluids, provide zofran for home use as needed and PCM follow up should symptoms continue/change of concern. patient verbalized understanding/agreement with plan of care Last Recorded V/S: Last Vital Signs Temp 97.4 F 05/19/20 21:33 Pulse 82 05/19/20 21:33 Resp 16 05/19/20 21:33 BP 101/64 05/19/20 21:33 Pulse Ox 93 L 05/19/20 21:33 - Orders/Labs/Meds Labs: Laboratory Tests 05/19/20 05/19/20 05/20/20 Range/Units 22:45 22:45 00:05 WBC 14.6 H (4.5-11.0) K/uL RBC 4.73 (3.30-5.50) M/uL Hgb 14.7 (12.0-15.0) g/dL Hct 43.6 (36.0-48.0) % MCV 92 (80-98) fL MCH 31 (27-31) pg MCHC 34 (32-36) % Plt Count 361 (150-400) K/uL Neut % (Auto) 85 H (36-66) % Lymph % (Auto) 7 L (24-44) % [place] % (Auto) 8 H (2-6) % Eos % (Auto) 1 L (2-4) % Baso % (Auto) 0 (0-1) % Sodium 141 (140-148) mmol/L Potassium 4.3 (3.6-5.2) mmol/L Chloride 102 (100-108) mmol/L Carbon Dioxide 27 (21-32) mmol/L Anion Gap 12.4 (5.0-14.0) mmol/L BUN 18 (7-18) mg/dL Creatinine 1.0 (0.6-1.0) mg/dL Est Cr Clr Drug Dosing 38.97 mL/min Estimated GFR (MDRD) 54 L (>60) Glucose 159 H (74-106) mg/dL Calcium 9.3 (8.5-10.1) mg/dL Total Bilirubin 0.2 (0.2-1.0) mg/dL AST 24 (15-37) U/L ALT 24 (12-78) U/L Alkaline Phosphatase 157 H (46-116) U/L Total Protein 6.8 (6.4-8.2) g/dL Albumin 3.5 (3.4-5.0) g/dL Globulin 3.3 (2.3-3.5) g/dL Albumin/Globulin Ratio 1.1 L (1.2-2.2) Amylase 33 (25-115) U/L Lipase 80 (73-393) U/L Urine Color Yellow (YELLOW) Urine Appearance Clear (CLEAR) Urine pH 5.5 (5.0-8.0) Ur Specific [place] >= 1.030 (1.008-1.030) Urine Protein Negative (NEGATIVE) mg/dL Urine Glucose (UA) Negative (NEGATIVE) mg/dL Urine Ketones Trace H (NEGATIVE) mg/dL Urine Occult Blood Trace-intact H (NEGATIVE) Urine Nitrite Negative (NEGATIVE) Urine Bilirubin Negative (NEGATIVE) Urine Urobilinogen 0.2 (0.2-1.0) EU/dL Ur Leukocyte Esterase Negative (NEGATIVE) Urine RBC 0-5 (0-5) Urine WBC 0-5 (0-5) Ur Epithelial Cells Few Amorphous Sediment Not seen Urine Bacteria Few Urine Mucus Few Departure - Departure Time of Disposition: 00:36 Disposition: Home, Self-Care 01 Condition: Good Clinical Impression: Abdominal cramps - Discharge Information *PRESCRIPTION DRUG MONITORING PROGRAM REVIEWED*: Not Applicable *COPY OF PRESCRIPTION DRUG MONITORING REPORT IN PATIENT TANYA: Not Applicable Instructions: Abdominal Pain, Adult, [id number] Referrals: Adná Mayfield MD [Primary Care Provider] - Forms: ED Department Discharge Additional Instructions: Ensure you are drinking plenty of fluids--water, juice, sports drinks of choice to stay well hydrated Ensure you are eating small frequent, well balanced meals to help prevent your episodes of hypoglycemia/low blood sugar I have given you a prescription for ondansetron (Zofran) should you develop any nausea or vomiting Follow up with your family doctor should you have continued symptoms of concern; if symptoms are worsening / increasing in nature return to the ER for re- evaluation Sepsis Event Note (ED) - Evaluation Sepsis Screening Result: No Definite Risk - Focused Exam Vital Signs: Vital Signs Temp Pulse Resp BP Pulse Ox 05/19/20 21:33 97.4 F 82 16 101/64 93 L
== END 2020-05-20 00:50 | disposition home or self-care (01) ==
LOC: JP.ED 20:50
DX: R10.30 Lower abdominal pain, unspecified (principal); Z88.2 Allergy status to sulfonamides; Z88.1 Allergy status to other antibiotic agents; Z91.048 Other nonmedicinal substance allergy status; Z88.0 Allergy status to penicillin; Z91.018 Allergy to other foods; Z87.891 Personal history of nicotine dependence
CPT/HCPCS: 36415; 80053; 81001; 82150; 83690; 85025; 99284

== ENCOUNTER 2020-07-16 20:00 | Inpatient (IN) | payer MEDICARE, MEDICAID ==
--- NOTE | 2020-07-16 22:45 | EDM.PDOC ---
ED HPI GENERAL MEDICAL PROBLEM - General Chief Complaint: Abdominal Pain Stated Complaint: MEDICAL Time Seen by Provider: 07/16/20 22:37 Source of Information: Reports: Patient, Family History Limitations: Reports: No Limitations - History of Present Illness INITIAL COMMENTS - FREE TEXT/NARRATIVE: Catherine is a 75-year-old female presenting to the ED with abdominal pain that started since this morning. Patient states he has not had a bowel movement over 4 days. Patient does report having some nausea but has been eating and drinking okay. The pain has been periumbilical and suprapubic and crampy in nature. It at a baseline is a 4-5 and then increases up to 8-9. The patient denies any urinary symptoms including urgency, frequency, or burning with urination. She has not taken anything for constipation at home. She thinks she may need a little milk of magnesia or an enema. Abdomen Pain Score (Numeric/FACES): 4 - Related Data Allergies Allergy/AdvReac Type Severity Reaction Status Date / Time lactose Allergy Diarrhea Verified 07/16/20 20:17 levofloxacin [From Levaquin] Allergy Rash Verified 07/16/20 20:17 nitrofurantoin Allergy Hives Verified 07/16/20 20:17 Penicillins Allergy Rash Verified 07/16/20 20:17 Sulfa (Sulfonamide Allergy Rash Verified 07/16/20 20:17 Antibiotics) oats AdvReac Stomach Verified 07/16/20 20:17 Upset Home Meds: Home Meds Multivitamin [Multivitamins] 1 each PO DAILY 02/25/20 [History] Ascorbate Calcium [Vitamin C] 500 mg PO DAILY 07/16/20 [History] Past Medical History HEENT History: Reports: Glaucoma, Impaired Vision, Other (See Below) Other HEENT History: upper and lower dentures Cardiovascular History: Reports: Other (See Below) Other Cardiovascular History: rheumatic fever and rheumatic heart disease as child. 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: Musculoskeletal History: Reports: Other (See Below) Other Musculoskeletal History: Muscular dystrophy Neurological History: Reports: Headaches, Chronic Psychiatric History: Reports: Anxiety, Panic Attack Endocrine/Metabolic History: Reports: Other (See Below) Other Endocrine/Metabolic History: hyoglycemia- Hematologic History: Reports: Anemia Oncologic (Cancer) History: Reports: Other (See Below) Other Oncologic History: skin Dermatologic History: Reports: Melanoma, Other (See Below) Other Dermatologic History: skin lesions removed from lip, inner right thigh and left foot - Infectious Disease History Infectious Disease History: Reports: Chicken Pox, Measles, Mumps, Rheumatic Fever, Rubella - Past Surgical History Head Surgeries/Procedures: Reports: None HEENT Surgical History: Reports: Oral Surgery Cardiovascular Surgical History: Reports: None GI Surgical History: Reports: Appendectomy, Cholecystectomy, EGD, Hernia Repair/Other, Other (See Below) Other GI Surgeries/Procedures: esophageal repair. Esophageal dilation per Dr. eG 04/17/2015 Female Surgical History: Reports: Hysterectomy, Other (See Below) Other Female Surgeries/Procedures: removal of left fallopian tube and ovary due to IUD Endocrine Surgical History: Reports: None Neurological Surgical History: Reports: None Musculoskeletal Surgical History: Reports: None Oncologic Surgical History: Reports: None Dermatological Surgical History: Reports: Skin Biopsy Social & Family History - Family History Cardiac: Reports: CAD, Heart Valve Replacement, Hypertension, [place] GI: Reports: Cholelithiasis, GERD Oncologic: Reports: Lymphoma, Ovarian - Tobacco Use Tobacco Use Status *Q: Never Tobacco User Second Hand Smoke Exposure: No - Caffeine Use Caffeine Use: Reports: Coffee - Recreational Drug Use Recreational Drug Use: No ED ROS GENERAL - Review of Systems Review Of Systems: See Below Constitutional: Reports: Diaphoresis (Patient reports that she had an episode where she became diaphoretic and thought she was hypoglycemic so she took some juice just prior to calling EMS. She does have episodes of hypoglycemia.) HEENT: Reports: No Symptoms Respiratory: Reports: No Symptoms Cardiovascular: Reports: No Symptoms Endocrine: Reports: No Symptoms GI/Abdominal: Reports: Abdominal Pain (Periumbilical and lower abdominal pain), Constipation, Nausea. Denies: Vomiting : Reports: No Symptoms. Denies: Dysuria, Flank Pain, Frequency, Urgency Musculoskeletal: Reports: No Symptoms Skin: Reports: No Symptoms Neurological: Reports: No Symptoms Psychiatric: Reports: Anxiety Hematologic/Lymphatic: Reports: No Symptoms Immunologic: Reports: No Symptoms ED EXAM, GI/ABD - Physical Exam Exam: See Below Exam Limited By: No Limitations General Appearance: Alert, Anxious, Moderate Distress Eyes: Bilateral: EOMI Throat/Mouth: Normal Oropharynx, Normal Voice, No Airway Compromise Head: Atraumatic, Normocephalic Neck: Normal Inspection Respiratory/Chest: No Respiratory Distress, Lungs Clear, Normal Breath Sounds Cardiovascular: Normal Peripheral Pulses, Regular Rate, Rhythm, No Murmur GI/Abdominal Exam: Distended (Mild abdominal distention), Guarding (Periumbilical and suprapubic guarding), Tender (Tender in the periumbilical and suprapubic region to palpation.), Abnormal Bowel Sounds, Other (Illness to percussion throughout the abdomen.). No: Rigid, Rebound Extremities: Normal Inspection Neurological: Alert, Oriented, Normal Cognition, No Motor/Sensory Deficits Psychiatric: Anxious Skin Exam: Warm, Dry, Intact, Normal Color Course - Vital Signs Last Recorded V/S: Last Vital Signs Temp 36.4 C 07/16/20 20:23 Pulse 93 07/16/20 23:19 Resp 16 07/16/20 23:19 BP 166/103 H 07/16/20 23:19 Pulse Ox 98 07/16/20 23:19 - Orders/Labs/Meds Orders: Active Orders 24 hr Category Date Time Status Sodium Chloride 0.9% [Saline Flush] Med 07/16/20 22:47 Active 10 ml FLUSH ASDIRECTED PRN Saline Lock Insert [OM.PC] Routine Oth 07/16/20 22:47 Ordered Medication Orders Sodium Chloride (Sodium Chloride 0.9% 10 Ml Syringe) 10 ml FLUSH ASDIRECTED PRN PRN Reason: Keep Vein Open Last Admin: 07/16/20 23:17 Dose: 10 ml Documented by: ANG Labs: Laboratory Tests 07/16/20 07/16/20 Range/Units 22:55 22:55 WBC 11.4 H (4.5-11.0) K/uL RBC 4.85 (3.30-5.50) M/uL Hgb 14.8 (12.0-15.0) g/dL Hct 44.4 (36.0-48.0) % MCV 92 (80-98) fL MCH 31 (27-31) pg MCHC 33 (32-36) % Plt Count 333 (150-400) K/uL Neut % (Auto) 81.3 H (36-66) % Lymph % (Auto) 9.1 L (24-44) % Cotton % (Auto) 8.7 H (2-6) % Eos % (Auto) 0.5 L (2-4) % Baso % (Auto) 0.4 (0-1) % Sodium 137 L (140-148) mmol/L Potassium 4.2 (3.6-5.2) mmol/L Chloride 100 (100-108) mmol/L Carbon Dioxide 23 (21-32) mmol/L Anion Gap 18.2 H (5.0-14.0) mmol/L BUN 19 H (7-18) mg/dL Creatinine 1.1 H (0.6-1.0) mg/dL Est Cr Clr Drug Dosing 35.43 mL/min Estimated GFR (MDRD) 48 L (>60) Glucose 162 H (74-106) mg/dL Calcium 9.7 (8.5-10.1) mg/dL Total Bilirubin 0.5 D (0.2-1.0) mg/dL AST 54 H D (15-37) U/L ALT 46 D (12-78) U/L Alkaline Phosphatase 186 H (46-116) U/L Total Protein 7.2 (6.4-8.2) g/dL Albumin 3.7 (3.4-5.0) g/dL Globulin 3.5 (2.3-3.5) g/dL Albumin/Globulin Ratio 1.1 L (1.2-2.2) Meds: Medications Generic Name Dose Route Start Last Admin Trade Name Clarkq PRN Reason Stop Dose Admin Sodium Chloride 10 ml 07/16/20 22:47 07/16/20 23:17 Sodium Chloride 0.9% 10 Ml Syringe FLUSH 10 ml ASDIRECTED PRN Administration Keep Vein Open Discontinued Medications Generic Name Dose Route Start Last Admin Trade Name Freq PRN Reason Stop Dose Admin Hydromorphone HCl 0.5 mg 07/16/20 22:48 07/16/20 23:20 Hydromorphone 0.5 Mg/0.5 Ml Syringe IVPUSH 07/16/20 22:49 0.5 mg ONETIME ONE Administration Ondansetron HCl 4 mg 07/16/20 22:48 07/16/20 23:17 Ondansetron 4 Mg/2 Ml Sdv IVPUSH 07/16/20 22:49 4 mg ONETIME ONE Administration - Radiology Interpretation Free Text/Narrative:: I reviewed the CT of the abdomen and pelvis without contrast on the patient demonstrating diffuse enlargement of the small bowel up to 3 cm in diameter with fecalization at the terminal ileum and bowel wall thickening at the terminal ileum and cecum consistent with either an ileus or small bowel obstruction. - Re-Assessments/Exams Free Text/Narrative Re-Assessment/Exam: 07/17/20 00:58 I reviewed the patient's labs showing a leukocyte count of 11.4 with a left shift. Her hemoglobin is 14.8 with hematocrit of 44.4 and her platelet count is 333,000. Her comprehensive metabolic panel shows a sodium of 137, potassium of 4.2, chloride of 100 with a bicarbonate of 23, BUN of 19 with a creatinine of 1.1 and a glucose of 162. Her AST is 54 with an ALT of 46 and an alkaline phosphatase of 186. CT of the abdomen and pelvis without contrast shows markedly dilated loops of bowel measuring up to 3 cm in diameter. There is fecal lysed terminal ileum with bowel wall thickening at the terminal ileum and cecum. This is worrisome for either an ileus or small bowel obstruction. Discussed the case with Dr. Yunior Ge who recommended an NG tube for decompression, IV hydration, n.p.o. status and admission and he will see her in the morning. The case was discussed with Alanna Pham CNP to arrange for admission of the patient. Departure - Departure Time of Disposition: 01:00 Disposition: Admitted As Inpatient 64 Clinical Impression: Small bowel obstruction Abdominal pain Qualifiers: Abdominal location: generalized Qualified Code(s): R10.84 - Generalized abdominal pain - Discharge Information Referrals: PCP,None [Primary Care Provider] - Forms: ED Department Discharge Sepsis Event Note (ED) - Evaluation Sepsis Screening Result: No Definite Risk - Focused Exam Vital Signs: Vital Signs Temp Pulse Resp BP Pulse Ox 07/16/20 23:19 93 16 166/103 H 98 07/16/20 22:29 94 20 91/56 L 97 07/16/20 20:23 36.4 C 105 H 16 121/75 96 07/16/20 20:16 36.4 C 105 H 16 121/75 96 - Problem List & Annotations (1) Abdominal pain SNOMED Code(s): 88202995 Code(s): R10.9 - UNSPECIFIED ABDOMINAL PAIN Status: Acute Priority: High Current Visit: Yes Qualifiers: Abdominal location: generalized Qualified Code(s): R10.84 - Generalized abdominal pain (2) Small bowel obstruction SNOMED Code(s): 591909161 Code(s): K56.609 - UNSP INTESTNL OBST, UNSP TO PARTIAL VERSUS COMPLETE OBST Status: Acute Priority: High Current Visit: Yes - Problem List Review Problem List Initiated/Reviewed/Updated: Yes - My Orders Last 24 Hours: My Active Orders 07/16/20 22:47 Sodium Chloride 0.9% [Saline Flush] 10 ml FLUSH ASDIRECTED PRN Saline Lock Insert [OM.PC] Routine - Assessment/Plan Last 24 Hours: My Active Orders 07/16/20 22:47 Sodium Chloride 0.9% [Saline Flush] 10 ml FLUSH ASDIRECTED PRN Saline Lock Insert [OM.PC] Routine
[2020-07-16] MEDS ORDERED: Sodium Chloride 0.9% 10 ML Syringe FLUSH PRN (22:47)
[2020-07-16] MEDS ORDERED: HYDROmorphone 0.5 MG/0.5 ML Syringe IVPUSH ONE (22:48)
[2020-07-16] MEDS ORDERED: Ondansetron 4 MG/2 ML SDV IVPUSH ONE (22:48)
--- NOTE | 2020-07-17 00:29 | CRLCT ---
For Patients: As a result of the Century Cures Act, medical imaging exams and procedure reports are released immediately into your electronic medical record. You may view this report before your referring provider. If you have questions, please contact your health care provider. Indication: Lower abdominal pain Technique: Noncontrast CT abdomen and pelvis. Comparison: CT abdomen and pelvis 03/27/2014 Findings: Heart size normal. Basilar atelectasis. Esophagectomy gastric pull-through. Unenhanced liver pancreas spleen adrenal glands are unremarkable. Cholecystectomy biliary dilatation. Vascular calcifications. No abdominal aortic aneurysm. Kidneys are unremarkable. Right cortical minimal calcification. Diffuse dilated bowel up to 3 cm to the terminal ileum. Fecalized terminal ileum. There may be some soft tissue thickening at the cecal base. Colon otherwise appears unremarkable. There mild mesenteric stranding and mild edema. Urinary bladder unremarkable hysterectomy. No suspicious bony lesions. Impression: 1.Diffuse dilated small bowel loops measure up to 3 centimeters to the terminal ileum. Findings may represent ileus or obstruction. Mild mesenteric stranding and edema there may be some soft tissue thickening at cecal base, cannot exclude mass. Please note that all CT scans at this facility use dose modulation, iterative reconstruction, and/or weight-based dosing when appropriate to reduce radiation dose to as low as reasonably achievable. Dictated by Dasha Quach MD @ 07/17/2020 12:27:[address] Dasha Quach @ Jul 17 2020 12:27AM
--- NOTE | 2020-07-17 01:43 | PCM.HP.2 ---
H&P History of Present Illness - General Date of Service: 07/16/20 Admit Problem/Dx: Admission Diagnosis/Problem Admission Diagnosis/Problem Small bowel obstruction Source of Information: Patient, EMS, Provider History Limitations: Reports: No Limitations - History of Present Illness Initial Comments - Free Text/Narative: chief complaint: abdominal pain This is a 75 year old female presents to the ER for evalualtion of abdominal pain and no bowel movement for the past 4 days. She also took Pepto-bismal today because 6 days ago she had diarrhea. She call EMS for transport to the ER. ER workup -labs no acute finding, urine pending -CT abdomen-pelvis shows a small bowel obstruction -consult to Dr. Zhao Ge advise admission and see in am. Onset of Symptoms: Reports: Gradual Symptom Onset Date: 07/13/20 Duration of Symptoms: Reports: Day(s): Location: Reports: Abdomen Quality: Reports: Sharp, Other (nausea) Severity: Moderate Improves with: Reports: None Worsens with: Reports: None Context: Reports: Other (constipation with last bowel movement 4 days ago.) Associated Symptoms: Reports: Loss of Appetite, Nausea/Vomiting Abdomen Pain Score (Numeric/FACES): 4 - Related Data Allergies/Adverse Reactions: Allergies Allergy/AdvReac Type Severity Reaction Status Date / Time lactose Allergy Diarrhea Verified 07/16/20 20:17 levofloxacin [From Levaquin] Allergy Rash Verified 07/16/20 20:17 nitrofurantoin Allergy Hives Verified 07/16/20 20:17 Penicillins Allergy Rash Verified 07/16/20 20:17 Sulfa (Sulfonamide Allergy Rash Verified 07/16/20 20:17 Antibiotics) oats AdvReac Stomach Verified 07/16/20 20:17 Upset Home Medications: Home Meds Multivitamin [Multivitamins] 1 each PO DAILY 02/25/20 [History] Ascorbate Calcium [Vitamin C] 500 mg PO DAILY 07/16/20 [History] Past Medical History HEENT History: Reports: Glaucoma, Impaired Vision, Other (See Below) Other HEENT History: upper and lower dentures Cardiovascular History: Reports: Other (See Below) Other Cardiovascular History: rheumatic fever and rheumatic heart disease as child. 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: Musculoskeletal History: Reports: Other (See Below) Other Musculoskeletal History: Muscular dystrophy Neurological History: Reports: Headaches, Chronic Psychiatric History: Reports: Anxiety, Panic Attack Endocrine/Metabolic History: Reports: Other (See Below) Other Endocrine/Metabolic History: hyoglycemia- Hematologic History: Reports: Anemia Oncologic (Cancer) History: Reports: Other (See Below) Other Oncologic History: skin Dermatologic History: Reports: Melanoma, Other (See Below) Other Dermatologic History: skin lesions removed from lip, inner right thigh and left foot - Infectious Disease History Infectious Disease History: Reports: Chicken Pox, Measles, Mumps, Rheumatic Fe juan a, Rubella - Past Surgical History Head Surgeries/Procedures: Reports: None HEENT Surgical History: Reports: Oral Surgery Cardiovascular Surgical History: Reports: None GI Surgical History: Reports: Appendectomy, Cholecystectomy, EGD, Hernia Repair/Other, Other (See Below) Other GI Surgeries/Procedures: esophageal repair. Esophageal dilation per Dr. Ge 04/17/2015 Female Surgical History: Reports: Hysterectomy, Other (See Below) Other Female Surgeries/Procedures: removal of left fallopian tube and ovary due to IUD Endocrine Surgical History: Reports: None Neurological Surgical History: Reports: None Musculoskeletal Surgical History: Reports: None Oncologic Surgical History: Reports: None Dermatological Surgical History: Reports: Skin Biopsy Social & Family History - Family History Cardiac: Reports: CAD, Heart Valve Replacement, Hypertension, [place] GI: Reports: Cholelithiasis, GERD Oncologic: Reports: Lymphoma, Ovarian - Tobacco Use Tobacco Use Status *Q: Never Tobacco User Second Hand Smoke Exposure: No - Caffeine Use Caffeine Use: Reports: Coffee - Recreational Drug Use Recreational Drug Use: No - Living Situation & Occupation Living situation: Reports: , Alone (lives in [facility] [address] for the past 18 years- she on the 6th floor and Son on the 4th floor. Sister lives in town. She has 4 adult children.) Occupation: Retired H&P Review of Systems - Review of Systems: Review Of Systems: See Below General: Reports: Other (constipation for 4 days, nausea and generalized not feeling well.) HEENT: Reports: Glasses, Other (dentures) Pulmonary: Reports: No Symptoms Cardiovascular: Reports: No Symptoms Gastrointestinal: Reports: Abdominal Pain, Constipation (x 4 days), Diarrhea (6 days ago), Nausea Genitourinary: Reports: No Symptoms Musculoskeletal: Reports: Other (ambulates with 4-point cane) Skin: Reports: No Symptoms Exam - Exam Exam: See Below - Vital Signs Vital Signs: Last Vital Signs Temp 97.6 F 07/16/20 20:23 Pulse 93 07/16/20 23:19 Resp 16 07/16/20 23:19 BP 166/103 H 07/16/20 23:19 Pulse Ox 98 07/16/20 23:19 Weight: 160 lb - Exam Quality Assessment: DVT Prophylaxis General: Alert, Oriented, Cooperative, Other (neat and well groomed, pleasant frail appearing female.) HEENT: EOMI, Hearing Intact, Mucosa Moist & [place], Glasses, Other (right nare with bleeding from NG tube placement.) Neck: Supple, Trachea Midline Lungs: Normal Respiratory Effort Cardiovascular: Normal S1, Normal S2 GI/Abdominal Exam: Soft, Distended, Tender (has been medicated - report no pain at this time- previous umbilical area) (Female) Exam: Deferred Rectal (Female) Exam: Deferred Back Exam: Normal Inspection Extremities: Normal Inspection, Normal Range of Motion, Non-Tender, No Pedal Edema, Normal Capillary Refill Peripheral Pulses: 2+: Brachial (R), Radial (L), Dorsalis Pedis (L), Dorsalis Pedis (R) Skin: Warm, Dry, Intact Neurological: Strength Equal Bilateral, Normal Speech, Normal Tone Neuro Extensive - Mental Status: Alert, Oriented x3, Normal Mood/Affect, Normal Cognition Psychiatric: Alert, Normal Affect, Normal Mood - Patient Data Lab Results Last 24 hrs: Laboratory Results - last 24 hr 07/16/20 07/16/20 Range/Units 22:55 22:55 WBC 11.4 H (4.5-11.0) K/uL RBC 4.85 (3.30-5.50) M/uL Hgb 14.8 (12.0-15.0) g/dL Hct 44.4 (36.0-48.0) % MCV 92 (80-98) fL MCH 31 (27-31) pg MCHC 33 (32-36) % Plt Count 333 (150-400) K/uL Neut % (Auto) 81.3 H (36-66) % Lymph % (Auto) 9.1 L (24-44) % [place] % (Auto) 8.7 H (2-6) % Eos % (Auto) 0.5 L (2-4) % Baso % (Auto) 0.4 (0-1) % Sodium 137 L (140-148) mmol/L Potassium 4.2 (3.6-5.2) mmol/L Chloride 100 (100-108) mmol/L Carbon Dioxide 23 (21-32) mmol/L Anion Gap 18.2 H (5.0-14.0) mmol/L BUN 19 H (7-18) mg/dL Creatinine 1.1 H (0.6-1.0) mg/dL Est Cr Clr Drug Dosing 35.43 mL/min Estimated GFR (MDRD) 48 L (>60) Glucose 162 H (74-106) mg/dL Calcium 9.7 (8.5-10.1) mg/dL Total Bilirubin 0.5 D (0.2-1.0) mg/dL AST 54 H D (15-37) U/L ALT 46 D (12-78) U/L Alkaline Phosphatase 186 H (46-116) U/L Total Protein 7.2 (6.4-8.2) g/dL Albumin 3.7 (3.4-5.0) g/dL Globulin 3.5 (2.3-3.5) g/dL Albumin/Globulin Ratio 1.1 L (1.2-2.2) Result Diagrams: 07/16/20 22:55 07/16/20 22:55 Sepsis Event Note - Evaluation Sepsis Screening Result: No Definite Risk - Focused Exam Vital Signs: Vital Signs Temp Pulse Resp BP Pulse Ox 07/16/20 23:19 93 16 166/103 H 98 07/16/20 22:29 94 20 91/56 L 97 07/16/20 20:23 97.6 F 105 H 16 121/75 96 07/16/20 20:16 97.6 F 105 H 16 121/75 96 - Problem List (1) Small bowel obstruction SNOMED Code(s): 773731354 ICD Code: K56.609 - UNSP INTESTNL OBST, UNSP TO PARTIAL VERSUS COMPLETE OBST Status: Acute Priority: High Current Visit: Yes Problem List Initiated/Reviewed/Updated: Yes Orders Last 24hrs: Active Orders 24 hr Category Date Time Status Patient Status Manage Transfer [TRANSFER] Routine ADT 07/17/20 01:22 Ordered Abdomen 1V Upright [CR] Stat Exams 07/17/20 01:02 Ordered Chest 1V Frontal [CR] Stat Exams 07/17/20 01:02 Ordered Sodium Chloride 0.9% [Saline Flush] Med 07/16/20 22:47 Active 10 ml FLUSH ASDIRECTED PRN NG [Nasogastric Orogastric Tube Insertion] [OM.PC] Oth 07/17/20 01:02 Ordered Routine Saline Lock Insert [OM.PC] Routine Oth 07/16/20 22:47 Ordered Resuscitation Status Routine Resus Stat 07/17/20 01:27 Ordered Medication Orders Sodium Chloride (Sodium Chloride 0.9% 10 Ml Syringe) 10 ml FLUSH ASDIRECTED PRN PRN Reason: Keep Vein Open Last Admin: 07/16/20 23:17 Dose: 10 ml Documented by: ANG Assessment/Plan Comment:: ASSESSMENT / PLAN- Small Bowel Obstruction Vital signs TPR 97.6 -93-16 B/P 166/103 O2 sat 98% Labs CBC -WBC11.4, Hgb 14.8, plts 333 CMP Na+137, K+ 4.2, anion gap 18.2, BUN 19, Glucose 162, UA pending. Imaging Abdominal pelvic CT shows small bowel obstruction. Meds- IV fluids NS at 125 ml/hr. Given Zofran 4mg for nausea. No further vomiting. NG tube placement in ER, verify placement with chest x-ray. had minimal gastric fluids from NG tube suction. Consult to Surgeon Dr. Ge- admitting orders NPO, NG tube placement, pain control, IV fluids, antiemetics, x-ray abdomen in am, will evaluate in am. Discussed plan of care. agree to admission. SMALL BOWEL OBSTRUCTION- -Admit to ICU Med-Surg. overflow for further monitoring -IV Fluids NS 125 mL per hour. -IV Zofran 4mg every 4 hours as needed for nausea -IV Morphine 2 mg every 2 hours for pain control as needed -continuous pulse ox. while IV narcotics -NG Tube with low intermittent suction -Advise to notify nurses of any fever or worsen pain -X-ray abdomen flat and upright in am -a.m. labs: CBC, BMP Maintenance issues -Home medications- place on hold -Nutrition: NPO, NG Tube in place. -Falk catheter: not indicated -DVT: SCD -PPI; IV Protonix 40 mg daily -tobacco- non-smoker CODE STATUS: FULL Admission status: Admit ICU Med-Surg. Overflow Admission justification. This patient will be admitted for inpatient services and is medically appropriate meeting medical necessity for inpatient admission as outlined in my documentation. I reasonably expect the patient will require inpatient services that span. Time over 2 midnights. I reasonably expect this patient to be discharged or transferred within 96 hours after admission to the critical [facility] hospital. Disposition: home Primary care provider: Dr. Mayfield, [facility] Hospitalist: Dr. Mazariegos Surgery Service: Dr. Ge - Mortality Measure Prognosis:: Good - Mortality Measure Prognosis:: Good
[2020-07-17] MEDS ORDERED: Lidocaine 2% Viscous Solution 15 ML Cup PO ONE (01:53)
[2020-07-17] MEDS ORDERED: Albuterol 0.083% 2.5 MG/3 ML Neb Soln NEB PRN (02:50)
[2020-07-17] MEDS ORDERED: Sodium Chloride 0.9% 1,000 ML IV SCH (02:50)
[2020-07-17] MEDS ORDERED: Morphine 2 MG/ML SYRINGE IVPUSH PRN (02:50)
[2020-07-17] MEDS: Acetaminophen 1,000 MG in Premix Bag 1 BAG IV PRN ×2 (03:37→09:51)
[2020-07-17] MEDS: Ondansetron 4 MG/2 ML SDV IV PRN ×2 (06:28→23:44)
[2020-07-17] MEDS ORDERED: Dextrose 5%-Lactated Ringers 1,000 ML IV SCH (07:30)
[2020-07-17] MEDS ORDERED: Naloxone 0.4 MG/ML SDV IV PRN (08:00)
--- NOTE | 2020-07-17 09:11 | CR ---
CHEST: Portable 07/17/2020 at 2:25 AM CLINICAL HISTORY:NG tube placement COMPARISON:2019 FINDINGS: Lungs are clear. There is some scarring in the right lung base. NG tube is seen above the diaphragmatic hiatus. It deviates to the right. This may be within a hiatal hernia. Impression: No acute cardiopulmonary process NG tube is above the diaphragmatic hiatus. This may be within a hiatal hernia.
[2020-07-17] MEDS: HYDROmorphone/Normal Saline 15 MG/30 ML PCA IV PRN (09:21)
[2020-07-17] MEDS: Pantoprazole 40 MG Vial IV SCH (09:50)
[2020-07-17] MEDS ORDERED: Bupivacaine 0.5% 50 ML MDV ONE (12:40)
[2020-07-17] MEDS ORDERED: Lidocaine 1% with EPINEPHrine 1:100,000 50 ML MDV ONE (12:40)
[2020-07-17] MEDS ORDERED: Meropenem 500 MG SDV ONE (12:40)
[2020-07-17] MEDS ORDERED: Rocuronium 50 MG/5 ML Vial ONE (12:53)
[2020-07-17] MEDS ORDERED: Neostigmine Methylsulfate 1 MG/ML 5 ML Syringe ONE (12:53)
[2020-07-17] MEDS ORDERED: Propofol 200 MG/20 ML SDV ONE (12:53)
[2020-07-17] MEDS ORDERED: Dexamethasone 4 MG/ML SDV ONE (12:53)
[2020-07-17] MEDS ORDERED: fentaNYL 250 MCG/5 ML SDV ONE (12:53)
[2020-07-17] MEDS ORDERED: Ondansetron 4 MG/2 ML SDV ONE (12:53)
[2020-07-17] MEDS ORDERED: Glycopyrrolate 0.2 MG/ML 5 ML MDV ONE (12:53)
[2020-07-17] MEDS ORDERED: Ropivacaine 40 ML, dexAMETHasone 8 MG, EPINEPHrine 0.4 MG, Sodium Chloride 0.9% 37.6 ML NERVRT SCH ×4 (13:00)
[2020-07-17] MEDS: cefOXitin 2 GM in Sodium Chloride 0.9% 50 ML IV ONE ×2 (13:44→17:11)
[2020-07-17] MEDS ORDERED: Lactated Ringers 1,000 ML ONE (14:14)
[2020-07-17] MEDS ORDERED: fentaNYL 100 MCG/2 ML SDV ONE (15:57)
[2020-07-17] MEDS ORDERED: hydrOXYzine HCL 100 MG/2 ML SDV IM PRN ×2 (17:00)
[2020-07-17] MEDS: Dextrose 5%-Lactated Ringers 1,000 ML IV SCH ×2 (17:14→23:23)
[2020-07-17] MEDS: cefOXitin 2 GM in Sodium Chloride 0.9% 50 ML IV SCH (19:28)
[2020-07-18] MEDS: cefOXitin 2 GM in Sodium Chloride 0.9% 50 ML IV SCH ×4 (02:41→20:15)
[2020-07-18] MEDS: Dextrose 5%-Lactated Ringers 1,000 ML IV SCH ×2 (04:54→14:02)
--- NOTE | 2020-07-18 09:08 | PN ---
DATE OF SERVICE: 07/18/2020 SUBJECTIVE: Catherine is postop day #1. Pain has been controlled. She has been quite sleepy. Vital signs stable. Temperature max of 99.3. Oral intake is 0. She does have an NG tube that put out 145. Urine output via Falk catheter was 895. REVIEW OF SYSTEMS: Remainder of review of systems negative for any pertinent positives or negatives. OBJECTIVE: GENERAL: Catherine is a pleasant 75-year-old female. VITAL SIGNS: TPR is 99.3, 117, 16, blood pressure 158/80. HEENT: Negative. NECK: Supple. HEART: Regular rate and rhythm. LUNGS: Clear. ABDOMEN: Dressings dry and intact. HARMEET as above. EXTREMITIES: Without peripheral edema. ASSESSMENT: 1. Exploratory laparotomy with lysis of adhesions. a. Right colectomy. b. Additional small bowel resection. c. Enterotomy for tube decompression of small bowel. d. Small bowel strictureplasty. e. Small bowel strictureplasty, incarcerated incisional hernia. f. Placement of Interceed mesh. POSTOPERATIVE DIAGNOSES: 1. 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 2. Enlarged mesenteric lymph node in distal small bowel mesentery. 3. Peritoneal implant 1 mm over distal small bowel. 4. Incarcerated incisional hernia. 5. 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 6. Marked distention. Date of procedure: 07/17/2020. Surgeon: Zhao Ge MD. PLAN: 1. Schedule and have consent signed for delayed primary closure for open abdominal incision on 07/19/2020 at 7:30, IV local and TAP block. Surgeon: Zhao Ge MD. 2. May have ice chips. 3. NG and Falk catheter will be left in until tomorrow. 4. Decrease IV to 100 mL per hour. 5. Continue use of incentive spirometer and ambulation. 6. We will evaluate p.r.n. or in a.m. Tammy Hernandez PA-C /[id number]
[2020-07-18] MEDS: Pantoprazole 40 MG Vial IV SCH (09:56)
[2020-07-19] MEDS: cefOXitin 2 GM in Sodium Chloride 0.9% 50 ML IV SCH ×4 (03:08→20:03)
[2020-07-19] MEDS ORDERED: Lactated Ringers 500 ML IV SCH (05:30)
[2020-07-19] MEDS ORDERED: Bupivacaine 0.5% 50 ML MDV ONE (06:51)
[2020-07-19] MEDS ORDERED: Meropenem 500 MG SDV ONE (06:51)
[2020-07-19] MEDS ORDERED: Lidocaine 1% with EPINEPHrine 1:100,000 50 ML MDV ONE (06:51)
[2020-07-19] MEDS ORDERED: Propofol 200 MG/20 ML SDV ONE ×2 (07:19→08:54)
[2020-07-19] MEDS ORDERED: fentaNYL 100 MCG/2 ML SDV ONE (07:19)
[2020-07-19] MEDS ORDERED: Ropivacaine 40 ML, dexAMETHasone 8 MG, EPINEPHrine 0.4 MG, Sodium Chloride 0.9% 37.6 ML NERVRT SCH ×4 (07:30)
[2020-07-19] MEDS: Pantoprazole 40 MG Vial IV SCH (10:10)
[2020-07-19] MEDS: Bisacodyl 5 MG Tab PO SCH ×2 (11:42→22:20)
[2020-07-19] MEDS: Docusate Sodium 100 MG Cap PO SCH ×2 (11:42→20:05)
[2020-07-19] MEDS: Magnesium Sulfate/Water 2 GM/50 ML BAG IV SCH ×3 (11:42→22:20)
[2020-07-19] MEDS: Potassium Phos in 0.9 % NaCl 15 MMOL in Premix Bag 1 BAG IV SCH ×6 (11:45→18:38)
[2020-07-19] MEDS: HYDROmorphone/Normal Saline 15 MG/30 ML PCA IV PRN (12:33)
[2020-07-19] MEDS: Dextrose 5%-Lactated Ringers 1,000 ML IV SCH (14:23)
[2020-07-20] MEDS: cefOXitin 2 GM in Sodium Chloride 0.9% 50 ML IV SCH (03:14)
[2020-07-20] MEDS: Magnesium Sulfate/Water 2 GM/50 ML BAG IV SCH ×4 (05:05→22:37)
[2020-07-20] MEDS: Bisacodyl 5 MG Tab PO SCH ×2 (09:14→22:37)
[2020-07-20] MEDS: Docusate Sodium 100 MG Cap PO SCH (09:14)
[2020-07-20] MEDS: Pantoprazole 40 MG Vial IV SCH (09:15)
[2020-07-20] MEDS ORDERED: HYDROmorphone 2 MG Tab PO PRN (09:27)
[2020-07-20] MEDS ORDERED: Dextrose 5%-Lactated Ringers 1,000 ML IV SCH (09:30)
[2020-07-20] MEDS: Potassium Phos in 0.9 % NaCl 15 MMOL in Premix Bag 1 BAG IV SCH ×8 (10:07→19:31)
[2020-07-21] MEDS: Magnesium Sulfate/Water 2 GM/50 ML BAG IV SCH (05:31)
[2020-07-21] MEDS: Pantoprazole 40 MG Tab.CR PO SCH (08:22)
[2020-07-21] MEDS: Bisacodyl 5 MG Tab PO SCH ×2 (08:22→20:25)
[2020-07-21] MEDS ORDERED: Dimethicone 20%/Zinc Oxide 25% 56 GM Spray Bottle TOP PRN (08:24)
--- NOTE | 2020-07-21 09:40 | CR ---
CHEST: Portable 07/19/2020 at 9:35 AM CLINICAL HISTORY:Central line placement COMPARISON:07/17/2020 FINDINGS: There has been placement of a left subclavian catheter. Tip is in the right atrium. No evidence of pneumothorax. No infiltrates are seen. NG tube has been removed. Impression: Left subclavian catheter placement. Tip is in the right atrium
[2020-07-21] MEDS ORDERED: Potassium Chloride 20 MEQ, Lidocaine 1% 2 ML in Sodium Chloride 0.9% 100 ML IV ONE (11:30)
--- NOTE | 2020-07-21 13:09 | OR ---
DATE OF PROCEDURE: 07/19/2020 SURGEON: Zhao Ge MD PREOPERATIVE DIAGNOSES: 1. Inadequate peripheral venous access. 2. Open abdominal incision. POSTOPERATIVE DIAGNOSES: 1. Inadequate peripheral venous access. 2. Open abdominal incision. PROCEDURES PERFORMED: 1. Insertion of left subclavian vein triple-lumen catheter. 2. Delayed primary closure of abdominal incision. INDICATIONS FOR PROCEDURE: A 75-year-old who is now 48 hours status post a right colectomy with an unprepped bowel. Skin and subcutaneous tissue were felt to be high risk for wound infection if they were closed and were therefore packed open for a planned delayed primary closure at this time. Potential risks of that procedure including bleeding and infection were gone over. Additionally, the patient has very limited peripheral venous access at this point, and a central line is to be inserted. The potential risks of that including bleeding, infection, pneumohemothorax, vascular injury, and such were also reviewed, and the patient wishes to proceed. DETAILS OF PROCEDURE: The patient was taken to the operating room and placed in a supine position. IV sedation was administered after which the upper chest and neck areas were prepped and draped. The left subclavian area was anesthetized with 1% lidocaine and the left subclavian vein cannulated, guidewire passed, and over the guidewire, a triple-lumen catheter inserted. Good in and outflow was noted. Ports were flushed with heparinized saline. Catheter sutured to the skin with some 3-0 silk stitch. Dressing applied. There were no evident complications. The abdomen was then inspected upon removal of the dressing and found to be quite clean. The abdomen was then prepped and draped. Bilateral transversus abdominis plane blocks were then placed with ultrasound and the wound then anesthetized with 1% lidocaine mixed with Marcaine and irrigated with meropenem-containing saline solution. The incision was then closed with a deep layer of 2-0 Vicryl stitch superficial, subdermal layer with 4-0 Vicryl stitch, and mora for the skin. The incision extended from roughly a handsbreadth below the xiphoid to a handsbreadth above the pubis. A dressing was applied. The patient was taken to the recovery room in satisfactory condition. Zhao Ge MD /[id number]
--- NOTE | 2020-07-21 13:20 | PN ---
DATE OF SERVICE: 07/21/2020 SUBJECTIVE: Catherine has had several bowel movements. She states she did not get much sleep last night. Hemoglobin 10.6, potassium 3.5. Pain has been controlled. She has been up ambulating. REVIEW OF SYSTEMS: Remainder of review of systems negative for any pertinent positives and negatives. OBJECTIVE: Catherine Sullivan is a pleasant 75-year-old female. She is alert and orientated. VITAL SIGNS: TPR is 99.2, 105, 16, blood pressure 153/81. HEENT: Negative. Neck: Supple. HEART: Regular rate and rhythm. LUNGS: Clear. ABDOMEN: Dressing dry and intact. Aquacel dressings on. HARMEET drain intact. EXTREMITIES: Without peripheral edema. ASSESSMENT: Exploratory laparotomy with lysis of adhesions. A. Right colectomy. B. Additional small-bowel resection. POSTOPERATIVE DIAGNOSES: 1. Obstructing carcinoma of ileocecal valve. 2. Enlarged mesenteric lymph node and distal small-bowel mesentery. 3. Peritoneal implant 1 mm over distal small bowel. 4. Incarcerated incisional hernia. 5. Stricture of proximal bowel at the point of abdominal wall. 6. Marked distention. 7. Date of procedure 07/17/2020. Surgeon: Zhao Ge MD. PLAN: 1. Regular diet. 2. May shower. 3. Referral to home health care. 4. Change Aquacel dressing on 07/22/2020. 5. We will evaluate p.r.n. or in a.m. Tammy Hernandez PA-C /[id number]
--- NOTE | 2020-07-21 14:13 | PN ---
DATE OF SERVICE: 07/19/2020 The patient has been afebrile with stable vital signs and NG output has been relatively scant at around 100 mL. The patient underwent a delayed primary closure today. HARMEET drain has become relatively serous and was removed along with the nasogastric tube and Falk catheter. Her magnesium, phosphate, and potassium are all marginally low. These will be supplemented today. She had a central line placed, which should facilitate adequate IV access at this point. Otherwise, maximize activity and work with pulmonary toilet. We will begin bowel stimulation. Zhao Ge MD /[id number]
[2020-07-21] MEDS: Ondansetron 4 MG Tab.DIS PO PRN (16:44)
--- NOTE | 2020-07-21 18:42 | PN ---
DATE OF SERVICE: 07/20/2020 The patient has been afebrile with stable vital signs. She did move her bowels. We will switch her over to oral pain medication and full liquid diet today. Otherwise, maximize activity and work with pulmonary toilet. Zhao Ge MD /[id number]
[2020-07-22] MEDS: Pantoprazole 40 MG Tab.CR PO SCH (08:23)
[2020-07-22] MEDS: Lactobacillus Rhamnosus GG (Probiotic) Cap PO SCH ×2 (09:27→20:36)
--- NOTE | 2020-07-22 13:12 | PN ---
DATE OF SERVICE: 07/22/2020 SUBJECTIVE: Catherine states she has been up every hour during the night having a loose bowel movement. She has had 8 stools in the past 24 hours. Vital signs have been stable. Pain has been controlled. Remainder of review of systems negative for any pertinent positives and negatives. OBJECTIVE: GENERAL: Catherine is a pleasant 75-year-old female. VITAL SIGNS: TPR is 99.7, 111, 18. Blood pressure 151/78. HEENT: Negative. NECK: Supple. HEART: Regular rate and rhythm. LUNGS: Clear. ABDOMEN: Aquacel dressings on. Abdominal binder is on. EXTREMITIES: Without peripheral edema. ASSESSMENT: 1. Frequent loose bowel movements. a. Exploratory laparotomy with lysis of adhesions. b. Right colectomy. c. Additional small bowel resection. 2. Postop diagnoses: a. Obstructing carcinoma of the ileocecal valve. b. Enlarged mesenteric lymph node in distal small bowel mesentery. c. Peritoneal implant 1 mm over distal small bowel. d. Incarcerated incisional hernia. e. Stricture of proximal bowel at the point of abdominal wall. f. Marked distention. 3. Date of procedure 07/17/2020. Surgeon: Zhao Ge MD. PLAN: 1. Check Clostridium difficile on stool sample. 2. Culturelle 2 tablets b.i.d. 3. Check CBC, CMP, mag, phos in a.m. 4. Prescription written for bed rails for patient to have at home to help with postop weakness and strength due to large abdominal incision. 5. We will evaluate p.r.n. or in a.m. Tammy Hernandez PA-C /[id number]
[2020-07-22] MEDS ORDERED: Acetaminophen 325 MG Tab PO PRN (18:12)
[2020-07-22] MEDS: Acetaminophen Soln 650 MG/20.3 ML UD Cup PO PRN (20:36)
[2020-07-23] MEDS: Ondansetron 4 MG Tab.DIS PO PRN (03:30)
[2020-07-23] MEDS: Pantoprazole 40 MG Tab.CR PO SCH (07:55)
[2020-07-23] MEDS: Acetaminophen Soln 650 MG/20.3 ML UD Cup PO PRN (07:59)
[2020-07-23] MEDS: Lactobacillus Rhamnosus GG (Probiotic) Cap PO SCH ×2 (08:00→20:24)
[2020-07-23] MEDS: Loperamide 2 MG Cap PO PRN ×3 (08:04→16:10)
[2020-07-23] MEDS: Potassium Phos in 0.9 % NaCl 15 MMOL in Premix Bag 1 BAG IV SCH ×6 (08:47→12:48)
--- NOTE | 2020-07-23 09:48 | PN ---
DATE OF SERVICE: 07/23/2020 SUBJECTIVE: Catherine feels quite weak today. Vital signs have been stable. She has persistent diarrhea, stating that she has been going every 2 hours. C. difficile was negative. Oral intake 600. Urine output independent. Remainder of remainder of review of systems negative for any pertinent positives and negatives. OBJECTIVE: GENERAL: Catherine Sullivan is a pleasant 75-year-old female. She is alert and orientated, sitting up in the chair. VITAL SIGNS: TPR is 98.2, 104, 16. Blood pressure 145/82. HEENT: Negative. NECK: Supple. HEART: Regular rate and rhythm. LUNGS: Clear. ABDOMEN: Aquacel dressings on. Abdominal binder is on. EXTREMITIES: Without peripheral edema. ASSESSMENT: 1. Exploratory laparotomy with lysis of adhesions. a. Right colectomy. b. Additional small bowel resection. 2. Postop diagnoses: a. Obstructing carcinoma of the ileocecal valve. b. Enlarged mesenteric lymph nodes in distal small bowel mesentery. c. Peritoneal implant 1 mm over distal small bowel. d. Incarcerated incisional hernia. e. Stricture of proximal bowel at the point of abdominal wall. f. Marked distention. 3. Date of procedure 07/17/2020. Surgeon: Zhao Ge MD. 4. Postop diarrhea. PLAN: 1. Rx Imodium 2 mg p.o. q.4 hours p.r.n. diarrhea. 2. K-Phos IV 45 millimoles one time on schedule. 3. Check CBC, CMP, mag, phos in a.m. 4. We will evaluate p.r.n. or in a.m. Tammy Hernandez PA-C /[id number]
[2020-07-24 05:22] VITALS: BP 128/61; PULSE 85
[2020-07-24] MEDS: Loperamide 2 MG Cap PO PRN (08:23)
[2020-07-24] MEDS: Pantoprazole 40 MG Tab.CR PO SCH (08:23)
--- NOTE | 2020-07-24 10:28 | DISCH ---
ADMISSION DIAGNOSES: 1. Abdominal pain. 2. Constipation. 3. Gastroesophageal reflux disease. 4. Muscular dystrophy. 5. Chronic headaches. 6. Anxiety. 7. Panic attack. 8. Melanoma. DISCHARGE DIAGNOSES: Exploratory laparotomy with lysis of adhesions: 1. Right colectomy. 2. Additional small bowel resection. POSTOPERATIVE DIAGNOSES: 1. Obstructing carcinoma of the ileocecal valve. 2. Enlarged mesenteric lymph nodes in distal small bowel mesentery. 3. Peritoneal implant 1 mm over distal small bowel. 4. Incarcerated incisional hernia. 5. Stricture of proximal bowel at point of abdominal wall. 6. Marked distention. 7. Date of procedure: 07/17/2020. Surgeon: Zhao Ge MD. 8. Delayed primary closure and insertion of left subclavian vein triple-lumen for open abdominal incision and inadequate peripheral venous access. Date of procedure: 07/19/2020. Surgeon: Zhao Ge MD. HISTORY: Catherine Sullivan is a 75-year-old female who presented to the emergency department with abdominal pain. After CT scan and preoperative evaluation and discussion of possible risks, she wished to proceed with surgical procedure. HOSPITAL COURSE: She had no operative complications. She had a delayed primary closure with insertion of left subclavian vein triple-lumen. Incision was left open due to high risk for wound infection. She had no operative complications after her delayed primary closure. Pathology report did come back adenocarcinoma with 1 positive lymph node. Catherine had her surgery on 07/17/2020 with delayed primary closure on 07/19/2020. As stated, she had no operative complications. Pain was well managed with a OVERHEAD CRANE INSPECTOR and then she was switched to oral pain medication. She was given bowel stimulation and did develop diarrhea. Clostridium difficile was obtained and it was negative. She continued to progress and gained her strength back. Vital signs, she remained afebrile throughout her hospitalization. Oral intake when she started regular diet was good. She had no other complications and she was able to be discharged to home on 07/24/2020 with home health care. PHYSICAL EXAMINATION: GENERAL: Catherine Sullivan is a pleasant 75-year-old female. VITAL SIGNS: Height 5 feet 2 inches, weight is 175 pounds. TPR is 98.1, 85, 16, blood pressure 128/61. HEENT: Negative. NECK: Supple. HEART: Regular rate and rhythm. LUNGS: Clear. ABDOMEN: Rissa intact. She is wearing her binder. There are no signs of infection. EXTREMITIES: Without peripheral edema. DISPOSITION: Discharged to home with home health care. CONDITION: Stable and improving. HOME MEDICATIONS: 1. Imodium 2 mg p.o. q.4 hours p.r.n. constipation. 2. Culturelle probiotics 2 capsules p.o. twice a day, #120. 3. She is to resume her home medications of: a. Vitamin C 500 mg daily. b. Multivitamin 1 daily. FOLLOWUP APPOINTMENTS: With Zhao Ge MD, on 07/30/2020 at 10 a.m. DIET: Regular diet as tolerated. Drink 8 to 10 glasses of water a day. ACTIVITY: No lifting over 10 pounds for 6 weeks. OTHER ACTIVITY: Walk 6 times daily inside your home. Driving: Do not drive for 1 week. Shower/bathing: May shower. DISCHARGE INSTRUCTIONS: Wound incision care: Keep operative site clean and dry. Wear abdominal binder for 6 weeks and then as tolerated. Notify provider if any fever, increased pain, swelling, redness, drainage, nausea, or vomiting. OTHER INSTRUCTIONS: Use incentive spirometer 10 times every hour while awake for 1 week. /[id number]
[2020-07-24] MEDS: Lactobacillus Rhamnosus GG (Probiotic) Cap PO SCH (10:30)
--- NOTE | 2020-07-24 13:23 | OR ---
DATE OF PROCEDURE: 07/17/2020 SURGEON: Zhao Ge MD PREOPERATIVE DIAGNOSIS: Small bowel obstruction. POSTOPERATIVE DIAGNOSES: 1. Small bowel obstruction secondary to obstructing carcinoma at ileocecal valve. 2. Peritoneal implant over distal small bowel. 3. Incarcerated incisional hernia. 4. Stricture at proximal small bowel at the point of abdominal wall adherence. 5. Marked distention of small bowel proximal to the point of obstruction. OPERATIVE PROCEDURES: Exploratory laparotomy with lysis of adhesions: 1. Right colectomy with ileocolic anastomosis (76925). 2. Additional small bowel resection (64503). 3. Enterotomy for tube decompression of small bowel (89871). 4. Small bowel stricturoplasty (60461). 5. Repair of incarcerated incisional hernia (12456). 6. Placement of Interceed mesh to limit recurrent adhesion formation between pelvic and abdominal wall and underlying viscera (90311). ANESTHESIA: General. LANDSCAPE CREW LEADER: Tammy Hernandez PA-C INDICATIONS FOR PROCEDURE: A 75-year-old female presenting with a small bowel obstruction. She has had history of previous esophagogastrectomy for esophageal perforation, but otherwise did not have any lower abdominal surgeries, and the overall picture would be somewhat suspicious for an obstructing tumor at the area of the ileocecal valve, that appears to be the level of the obstruction. Plan is to proceed with an exploratory laparotomy, lysis of adhesions, and/or small bowel and large bowel resection, and other procedures as indicated. Potential risks including bleeding, infection, injury to the underlying viscera, leaks from GI tract anastomosis, possibility that there may be a tumor that is not potentially curable were all gone over, and the patient wishes to proceed. DETAILS OF PROCEDURE: The patient was taken to the operating room. After general endotracheal anesthesia was induced, a Falk catheter was inserted and the abdomen was prepped and draped. A midline incision from the umbilicus upward toward the xiphoid was initially made. This was carried down through the skin and subcutaneous tissue. During the course of the dissection, the patient was noted to have a 1-cm incarcerated incisional hernia containing some preperitoneal fat. This was reduced and hernia content excised. The abdomen was entered. The patient was noted to have some densely adherent small bowel through the previous incision, this was taken down, and the patient was noted to have a stricture at one location within that, more or less mid small bowel. On initial palpation, the patient was noted to have an obvious mass involving the area of the ileocecal valve with the small bowel proximal to that being strikingly distended consistent with the known small-bowel obstruction. There were some mildly enlarged lymph nodes in the ileocolic chain and a small amount of thick fluid primarily was evacuated and sent for cytology. In the distal small bowel, there was 1 tiny roughly 1 mm white nodule present and to rule out this being an area of peritoneal carcinomatosis, the valve was excised. Otherwise, there was no evidence of carcinomatosis per se and no significant lymphadenopathy in the more central abdominal vasculature and no liver or other visceral metastases evident. The mass itself was not adherent to the surrounding structures, but appeared to be most likely full thickness in terms of the depths of the penetration. At this point, the distal small bowel was divided with a FLORENCIO stapler, and then the transverse colon just to the right of the middle colic vessels was divided, then reflected on the distal small bowel. The cecum and ascending colon and then the proximal transverse colon were then all freed up. Care was taken to avoid injury to underlying right ureter and duodenum and the mesenteric then divided with a series of FLORENCIO mora. Care was taken to get down to the base of the ileocolic vessels as well as the right colic vessels and that specimen then delivered from the field. Manual inspection done of the more distal small bowel proximal to the original line of resection showed some shotty lymphadenopathy present and it was felt this would be best resected and made sure that we were not leaving any metastatic lymph nodes in place as much as possible. Some additional roughly 2 feet of small bowel was then resected along with the underlying mesentery, resecting with FLORENCIO mora as well, this was sent as a separate specimen. The small bowel proximal to the staple line was then markedly distended. This was opened and Whitfield sump tube placed and large volume of air and fluid evacuated from the small bowel to decompress it. The ileocolic anastomosis was then accomplished with a dbom-al-[id number] manner with 2 internal firings of the Endo-FLORENCIO 60 mm stapler. Common opening was closed transversely with FLORENCIO mora as well, and the angles anastomosed and mesenteric defect reinforced with some 3-0 Vicryl stitch along with fibrin sealant. The area of stricturing in the mid small bowel was then dealt with, a small enterotomy being placed in with the bowel flipped over on itself at the point of stricture, 2 internal firings of the FLORENCIO stapler were accomplished and the common opening closed transversely with the FLORENCIO mora as well. In this case, there was no mesenteric defect, and the angles of anastomosis were reinforced with 3-0 Vicryl stitch. The abdomen was irrigated with antibiotic-containing saline solution, and at that point, no further problems were noted. Single Ludin-Allred drain was taken out through the right upper quadrant and placed across the area of dissection into the pelvis along the pericolic gutter area. Interceed mesh was then placed underneath the incision to limit recurrent adhesion formation, and the midline fascia then approximated with a #2 Vicryl stitch. This included repair of the area of hernia in the upper aspect of the incision. The skin and subcutaneous tissue were felt to be high risk for wound infection if they were closed at this time, they were packed open for a planned delayed primary closure in 2 to 3 days. The patient was taken to the recovery room in satisfactory condition. Physician planning assistant, Tammy Hernandez, played an essential role in assisting in this case, helping to position the patient, retract structures as needed, as well as suturing and cutting sutures when indicated. Her presence improved patient safety and decreased operative time. Zhao Ge MD /[id number]
== END 2020-07-24 10:30 | disposition home health service (06) | DRG 327 ==
LOC: JP.ED 20:00 → JP.ICU 07-17 01:22 → JP.MS 07-17 16:56 → UNDODISIN 07-23 12:11
PROVIDERS: ADMIT Hospitalist; ATTEND Surgery
PROC: 0DTF0ZZ Resection of Right Large Intestine, Open Approach (ICD-10-PCS; principal; 2020-07-17)
PROC: 0DB90ZZ Excision of Duodenum, Open Approach (ICD-10-PCS; 2020-07-17)
PROC: 0DBB0ZZ Excision of Ileum, Open Approach (ICD-10-PCS; 2020-07-17)
PROC: 0WQF0ZZ Repair Abdominal Wall, Open Approach (ICD-10-PCS; 2020-07-17)
PROC: 0D980ZZ Drainage of Small Intestine, Open Approach (ICD-10-PCS; 2020-07-17)
PROC: 3E0M05Z Introduction of Adhesion Barrier into Peritoneal Cavity, Open Approach (ICD-10-PCS; 2020-07-17)
PROC: 0WQF0ZZ Repair Abdominal Wall, Open Approach (ICD-10-PCS; 2020-07-19)
PROC: 05H633Z Insertion of Infusion Device into Left Subclavian Vein, Percutaneous Approach (ICD-10-PCS; 2020-07-19)
DX: K56.609 Unspecified intestinal obstruction, unspecified as to partial versus complete obstruction (principal); H40.9 Unspecified glaucoma; C18.0 Malignant neoplasm of cecum; C77.2 Secondary and unspecified malignant neoplasm of intra-abdominal lymph nodes; K43.0 Incisional hernia with obstruction, without gangrene; R19.7 Diarrhea, unspecified; F41.9 Anxiety disorder, unspecified; H54.7 Unspecified visual loss; K21.9 Gastro-esophageal reflux disease without esophagitis; F41.0 Panic disorder [episodic paroxysmal anxiety]; D64.9 Anemia, unspecified; G71.00 Muscular dystrophy, unspecified; R32 Unspecified urinary incontinence; Z85.820 Personal history of malignant melanoma of skin; Z88.1 Allergy status to other antibiotic agents; Z88.2 Allergy status to sulfonamides; Z88.0 Allergy status to penicillin; Z91.018 Allergy to other foods; Z90.49 Acquired absence of other specified parts of digestive tract; Z90.710 Acquired absence of both cervix and uterus; Z79.899 Other long term (current) drug therapy; Z91.011 Allergy to milk products
CPT/HCPCS: 36415; 74176; 80053; 82378; 85025; 96374; 96375; 99285 ×2; J1170; J2405; 71045; 71045-26; 83735; 84100; 85027; 87493; 88112; 88305; 94762; 97110-GP; 97162-GP; 97530-GP; 97535-GP; A9270-GY; C9113; J0131; J0171; J0694; J1100; J1642; J2001; J2020; J2185; J2270; J2704; J2710; J2795; J3010; J3410; J3475; J3480; J3490; J7030; J7120; J7121

== ENCOUNTER 2020-08-02 08:39 | Emergency (ER) | payer MEDICARE, MEDICAID ==
--- NOTE | 2020-08-02 09:48 | EDM.PDOC ---
ED HPI GENERAL MEDICAL PROBLEM - General Chief Complaint: Neuro Symptoms/Deficits Stated Complaint: DIZZY, SWEATS, HEART PALPATATIONS Time Seen by Provider: 08/02/20 09:35 Source of Information: Reports: Patient, Old Records, RN History Limitations: Reports: No Limitations - History of Present Illness INITIAL COMMENTS - FREE TEXT/NARRATIVE: 75 yo female presents this morning accompanied by her son for dizziness that came on after breakfast today. She recently had a SBO repaired here by Dr. Ge. She has had loose stools since then, but otherwise has been doing well. She was prescribed doxycycline after discharge, but she didn't know why and while she filled the Rx, she has not started it due to fear of the listed side effects. She denies any dysuria or fever. Denies vertigo. Is feeling better now. Onset: Today, Sudden Onset Date: 08/02/20 Duration: Minutes:, Resolved Prior to Arrival Location: Reports: Generalized Quality: Reports: Other (no pain) Severity: Moderate Improves with: Reports: Other (? got symptomatic right after breakfast and later resolved her sx's. ) Worsens with: Reports: Other (unsure) Context: Reports: Other (See HPI) Associated Symptoms: Reports: Diaphoresis (when dizzy). Denies: Chest Pain, Fever/Chills, Headaches, Nausea/Vomiting Treatments YOKER: Reports: Other (see below) (none) - Related Data Allergies Allergy/AdvReac Type Severity Reaction Status Date / Time lactose Allergy Diarrhea Verified 08/02/20 08:46 levofloxacin [From Levaquin] Allergy Rash Verified 08/02/20 08:46 nitrofurantoin Allergy Hives Verified 08/02/20 08:46 Penicillins Allergy Rash Verified 08/02/20 08:46 Sulfa (Sulfonamide Allergy Rash Verified 08/02/20 08:46 Antibiotics) oats AdvReac Stomach Verified 08/02/20 08:46 Upset Home Meds: Home Meds Multivitamin [Multivitamins] 1 each PO DAILY 02/25/20 [History] Ascorbate Calcium [Vitamin C] 500 mg PO DAILY 07/16/20 [History] Dimethicone/Zinc Oxide [Rash Relief-Zinc Oxide] 0 gm TOP ASDIRECTED PRN bottle 07/24/20 [Rx] Lactobacillus Rhamnosus GG [Culturelle] 2 cap PO BID #120 cap 07/24/20 [Rx] Loperamide [Imodium] 2 mg PO Q4H PRN #30 cap 07/24/20 [Rx] Cholecalciferol (Vitamin D3) [Vitamin D] 5,000 unit PO DAILY 08/02/20 [History] Past Medical History HEENT History: Reports: Glaucoma, Impaired Vision, Other (See Below) Other HEENT History: upper and lower dentures Cardiovascular History: Reports: Other (See Below) Other Cardiovascular History: rheumatic fever and rheumatic heart disease as child. 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: Musculoskeletal History: Reports: Other (See Below) Other Musculoskeletal History: Muscular dystrophy Neurological History: Reports: Headaches, Chronic Psychiatric History: Reports: Anxiety, Panic Attack Endocrine/Metabolic History: Reports: Other (See Below) Other Endocrine/Metabolic History: hyoglycemia- Hematologic History: Reports: Anemia Oncologic (Cancer) History: Reports: Other (See Below) Other Oncologic History: skin Dermatologic History: Reports: Melanoma, Other (See Below) Other Dermatologic History: skin lesions removed from lip, inner right thigh and left foot - Infectious Disease History Infectious Disease History: Reports: Chicken Pox, Measles, Mumps, Rheumatic Fever, Rubella - Past Surgical History Head Surgeries/Procedures: Reports: None HEENT Surgical History: Reports: Oral Surgery Cardiovascular Surgical History: Reports: None Respiratory Surgical History: Reports: None GI Surgical History: Reports: Appendectomy, Cholecystectomy, EGD, Hernia Repair/Other, Small Bowel, Other (See Below) Other GI Surgeries/Procedures: esophageal repair. Esophageal dilation per Dr. Ge 04/17/2015 Female Surgical History: Reports: Hysterectomy, Other (See Below) Other Female Surgeries/Procedures: removal of left fallopian tube and ovary due to IUD Endocrine Surgical History: Reports: None Neurological Surgical History: Reports: None Musculoskeletal Surgical History: Reports: None Oncologic Surgical History: Reports: None Dermatological Surgical History: Reports: Skin Biopsy Social & Family History - Family History Family Medical History: No Pertinent Family History Cardiac: Reports: CAD, Heart Valve Replacement, Hypertension, [place] GI: Reports: Cholelithiasis, GERD Oncologic: Reports: Lymphoma, Ovarian - Tobacco Use Tobacco Use Status *Q: Former Tobacco User Used Tobacco, but Quit: Yes Month/Year Tobacco Last Used: 1992 Second Hand Smoke Exposure: No - Caffeine Use Caffeine Use: Reports: Coffee - Living Situation & Occupation Living situation: Reports: , Alone (lives in [facility]ment for the past 18 years- she on the 6th floor and Son on the 4th floor. Sister lives in town. She has 4 adult children.) Occupation: Retired ED ROS GENERAL - Review of Systems Review Of Systems: See Below Constitutional: Reports: Malaise, Diaphoresis (resolved) HEENT: Reports: No Symptoms Respiratory: Reports: No Symptoms Cardiovascular: Reports: Lightheadedness Endocrine: Reports: No Symptoms GI/Abdominal: Reports: No Symptoms : Reports: No Symptoms Musculoskeletal: Reports: No Symptoms Skin: Reports: Diaphoresis Neurological: Reports: No Symptoms ED EXAM, DIZZINESS - Physical Exam Exam: See Below Exam Limited By: No Limitations General Appearance: Alert, WD/WN, No Apparent Distress Eye Exam: Bilateral Eye: Normal Inspection, PERRL, Other (no nystagmus) Ears: Normal External Exam, Normal Canal, Hearing Grossly Normal, Normal TMs Nose: Normal Inspection, No Blood Throat/Mouth: Normal Inspection, Normal Lips, Normal Oropharynx, Normal Voice, No Airway Compromise Head Exam: Atraumatic, Normocephalic Neck: Normal Inspection Respiratory/Chest: No Respiratory Distress, Lungs Clear, Normal Breath Sounds, No Accessory Muscle Use Cardiovascular: Regular Rate, Rhythm, No Edema GI/Abdominal: Normal Bowel Sounds, Soft, Non-Tender, No Distention Neurological: Alert, Normal Mood/Affect, CN II-XII Intact, No Motor/Sensory Deficits, Oriented x 3 Extremities: Normal Inspection, Normal Range of Motion, Non-Tender, No Pedal Edema Psychiatric: Normal Affect, Normal Mood Skin Exam: Warm, Dry, Intact, Normal Color, No Rash Course - Vital Signs Last Recorded V/S: Last Vital Signs Temp 36.7 C 08/02/20 08:58 Pulse 97 08/02/20 09:54 Resp 12 08/02/20 09:54 BP 131/80 08/02/20 09:54 Pulse Ox 98 08/02/20 09:54 Orthostatic Blood Pressure [ 118/73 Standing] Orthostatic Blood Pressure [ 120/84 Sitting] Orthostatic Blood Pressure [ 120/70 Supine] - Orders/Labs/Meds Orders: Active Orders 24 hr Category Date Time Status Cardiac Monitoring [RC] .As Directed Care 08/02/20 08:41 Active Orthostatic Vital Signs [RC] ASDIRECTED Care 08/02/20 09:43 Active Labs: Laboratory Tests 08/02/20 08/02/20 Range/Units 09:54 10:17 Troponin I < 0.017 (0.000-0.056) ng/mL Urine Color Yellow (YELLOW) Urine Appearance Clear (CLEAR) Urine pH 5.5 (5.0-8.0) Ur Specific Grandy <= 1.005 L (1.008-1.030) Urine Protein Negative (NEGATIVE) mg/dL Urine Glucose (UA) Negative (NEGATIVE) mg/dL Urine Ketones Negative (NEGATIVE) mg/dL Urine Occult Blood Trace-lysed H (NEGATIVE) Urine Nitrite Negative (NEGATIVE) Urine Bilirubin Negative (NEGATIVE) Urine Urobilinogen 0.2 (0.2-1.0) EU/dL Ur Leukocyte Esterase Negative (NEGATIVE) Urine RBC 0-5 (0-5) Urine WBC 0-5 (0-5) Ur Epithelial Cells Rare Amorphous Sediment Not seen Urine Bacteria Not seen Urine Mucus Not seen Departure - Departure Time of Disposition: 11:06 Disposition: Home, Self-Care 01 Condition: Good Clinical Impression: Dizziness - Discharge Information *PRESCRIPTION DRUG MONITORING PROGRAM REVIEWED*: Not Applicable *COPY OF PRESCRIPTION DRUG MONITORING REPORT IN PATIENT TANYA: Not Applicable Instructions: Dizziness Referrals: Adán Mayfield MD [Primary Care Provider] - Forms: ED Department Discharge Additional Instructions: Continue usual medications. Return as needed. Sepsis Event Note (ED) - Evaluation Sepsis Screening Result: No Definite Risk - Focused Exam Vital Signs: Vital Signs Temp Pulse Resp BP Pulse Ox 08/02/20 09:54 97 12 131/80 98 08/02/20 08:58 36.7 C 116 H 16 155/84 H 97 08/02/20 08:55 36.7 C 116 H 16 155/84 H 97 - My Orders Last 24 Hours: My Active Orders 08/02/20 08:41 Cardiac Monitoring [RC] .As Directed 08/02/20 09:43 Orthostatic Vital Signs [RC] ASDIRECTED - Assessment/Plan Last 24 Hours: My Active Orders 08/02/20 08:41 Cardiac Monitoring [RC] .As Directed 08/02/20 09:43 Orthostatic Vital Signs [RC] ASDIRECTED
[2020-08-02 09:54] VITALS: BP 131/80; PULSE 97
== END 2020-08-02 11:13 | disposition home or self-care (01) ==
LOC: JP.ED 08:39
DX: R42 Dizziness and giddiness (principal); Z87.891 Personal history of nicotine dependence; Z91.011 Allergy to milk products; Z88.8 Allergy status to other drugs, medicaments and biological substances; Z88.0 Allergy status to penicillin; Z88.2 Allergy status to sulfonamides; Z91.018 Allergy to other foods; Z79.899 Other long term (current) drug therapy
CPT/HCPCS: 36415; 81001; 84484; 99282; 99284

== ENCOUNTER 2020-09-09 09:13 | Emergency (ER) | payer MEDICARE, MEDICAID ==
[2020-09-09] MEDS ORDERED: Aspirin 81 MG Tab.Chew PO ONE (09:55)
--- NOTE | 2020-09-09 10:00 | EDM.PDOC ---
ED HPI GENERAL MEDICAL PROBLEM - General Chief Complaint: Chest Pain Stated Complaint: CHEST PAIN Time Seen by Provider: 09/09/20 09:50 Source of Information: Reports: Patient, Old Records, RN History Limitations: Reports: No Limitations - History of Present Illness INITIAL COMMENTS - FREE TEXT/NARRATIVE: 75 yo female presents with L chest pain. Started about 0830h at breakfast. Pain is a little better now. Denies any associated sx's. No personal hx of CAD, but does have a FHx of CAD. There has not been calf pain or LE edema. Nothing seems to change her pain. No self tx. 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: Other (see below) (none) - Related Data Allergies Allergy/AdvReac Type Severity Reaction Status Date / Time lactose Allergy Diarrhea Verified 09/09/20 09:30 levofloxacin [From Levaquin] Allergy Rash Verified 09/09/20 09:30 nitrofurantoin Allergy Hives Verified 09/09/20 09:30 Penicillins Allergy Rash Verified 09/09/20 09:30 Sulfa (Sulfonamide Allergy Rash Verified 09/09/20 09:30 Antibiotics) oats AdvReac Stomach Verified 09/09/20 09:30 Upset Home Meds: Home Meds Multivitamin [Multivitamins] 1 each PO DAILY 02/25/20 [History] Ascorbate Calcium [Vitamin C] 500 mg PO DAILY 07/16/20 [History] Dimethicone/Zinc Oxide [Rash Relief-Zinc Oxide] 0 gm TOP ASDIRECTED PRN bottle 07/24/20 [Rx] Loperamide [Imodium] 2 mg PO Q4H PRN #30 cap 07/24/20 [Rx] Cholecalciferol (Vitamin D3) [Vitamin D] 5,000 unit PO DAILY 08/02/20 [History] Past Medical History HEENT History: Reports: Glaucoma, Impaired Vision, Other (See Below) Other HEENT History: upper and lower dentures Cardiovascular History: Reports: Other (See Below) Other Cardiovascular History: rheumatic fever and rheumatic heart disease as child. 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: Musculoskeletal History: Reports: Other (See Below) Other Musculoskeletal History: Muscular dystrophy Neurological History: Reports: Headaches, Chronic Psychiatric History: Reports: Anxiety, Panic Attack Endocrine/Metabolic History: Reports: Other (See Below) Other Endocrine/Metabolic History: hyoglycemia- Hematologic History: Reports: Anemia Oncologic (Cancer) History: Reports: Other (See Below) Other Oncologic History: skin Dermatologic History: Reports: Melanoma, Other (See Below) Other Dermatologic History: skin lesions removed from lip, inner right thigh and left foot - Infectious Disease History Infectious Disease History: Reports: Chicken Pox, Measles, Mumps, Rheumatic Fever, Rubella - Past Surgical History Head Surgeries/Procedures: Reports: None HEENT Surgical History: Reports: Oral Surgery Cardiovascular Surgical History: Reports: None Respiratory Surgical History: Reports: None GI Surgical History: Reports: Appendectomy, Cholecystectomy, EGD, Hernia Repair/Other, Small Bowel, Other (See Below) Other GI Surgeries/Procedures: esophageal repair. Esophageal dilation per Dr. Ge 04/17/2015 Female Surgical History: Reports: Hysterectomy, Other (See Below) Other Female Surgeries/Procedures: removal of left fallopian tube and ovary due to IUD Endocrine Surgical History: Reports: None Neurological Surgical History: Reports: None Musculoskeletal Surgical History: Reports: None Oncologic Surgical History: Reports: None Dermatological Surgical History: Reports: Skin Biopsy Social & Family History - Family History Family Medical History: No Pertinent Family History Cardiac: Reports: CAD, Heart Valve Replacement, Hypertension, [place] GI: Reports: Cholelithiasis, GERD Oncologic: Reports: Lymphoma, Ovarian - Tobacco Use Tobacco Use Status *Q: Never Tobacco User - Caffeine Use Caffeine Use: Reports: Coffee - Living Situation & Occupation Living situation: Reports: , Alone (lives in [facility]ment for the past 18 years- she on the 6th floor and Son on the 4th floor. Sister lives in town. She has 4 adult children.) Occupation: Retired ED ROS GENERAL - Review of Systems Review Of Systems: See Below Constitutional: Reports: No Symptoms HEENT: Reports: No Symptoms Respiratory: Denies: Shortness of Breath, Wheezing, Pleuritic Chest Pain, Cough, Sputum, Hemoptysis Cardiovascular: Reports: Chest Pain. Denies: Claudication, Dyspnea on Exertion, Lightheadedness, Palpitations, Syncope Endocrine: Reports: No Symptoms GI/Abdominal: Reports: No Symptoms. Denies: Nausea : Reports: No Symptoms Musculoskeletal: Reports: No Symptoms Skin: Reports: No Symptoms. Denies: Diaphoresis Neurological: Reports: No Symptoms ED EXAM, GENERAL - Physical Exam Exam: See Below Exam Limited By: No Limitations General Appearance: Alert, WD/WN, No Apparent Distress Eye Exam: Bilateral Eye: Normal Inspection Ears: Normal External Exam, Normal Canal, Hearing Grossly Normal Ear Exam: Bilateral Ear: Auricle Normal, Canal Normal Nose: Normal Inspection, No Blood Throat/Mouth: Normal Inspection, Normal Lips, Normal Oropharynx, Normal Voice, No Airway Compromise Head: Atraumatic, Normocephalic Neck: Normal Inspection Respiratory/Chest: No Respiratory Distress, Lungs Clear, Normal Breath Sounds, No Accessory Muscle Use, Chest Non-Tender Cardiovascular: Regular Rate, Rhythm, No Edema GI/Abdominal: Normal Bowel Sounds, Soft, Non-Tender, No Distention Back Exam: Normal Inspection Extremities: Normal Inspection, Normal Range of Motion, Non-Tender, No Pedal Edema. No: Pedal Edema Neurological: Alert, Oriented, CN II-XII Intact, Normal Cognition, No Motor/Sensory Deficits Psychiatric: Normal Affect, Normal Mood Skin Exam: Warm, Dry, Intact, Normal Color, No Rash #1 Interpretation EKG Date: 09/09/20 Time: 10:05 Rhythm: NSR Rate (Beats/Min): 85 Jackson: Normal P-Wave: Present QRS: Normal ST-T: Normal QT: Normal Comparison: No Change Course - Vital Signs Last Recorded V/S: Last Vital Signs Temp 36.6 C 09/09/20 09:35 Pulse 81 09/09/20 11:56 Resp 18 09/09/20 11:56 BP 142/88 H 09/09/20 11:56 Pulse Ox 96 09/09/20 11:56 - Orders/Labs/Meds Orders: Active Orders 24 hr Category Date Time Status EKG Documentation Completion [RC] ASDIRECTED Care 09/09/20 09:54 Active EKG 12 Lead [EK] Routine Ther 09/09/20 09:54 Ordered Labs: Laboratory Tests 09/09/20 09/09/20 09/09/20 Range/Units 10:07 10:07 10:07 WBC 5.3 (4.5-11.0) K/uL RBC 4.34 (3.30-5.50) M/uL Hgb 13.3 (12.0-15.0) g/dL Hct 39.5 (36.0-48.0) % MCV 91 (80-98) fL MCH 31 (27-31) pg MCHC 34 (32-36) % Plt Count 317 (150-400) K/uL D-Dimer, Quantitative 285.62 (0.0-500.0) ng/mL Sodium 142 (140-148) mmol/L Potassium 3.9 (3.6-5.2) mmol/L Chloride 106 (100-108) mmol/L Carbon Dioxide 26 (21-32) mmol/L Anion Gap 9.9 (5.0-14.0) mmol/L BUN 7 (7-18) mg/dL Creatinine 0.8 (0.6-1.0) mg/dL Est Cr Clr Drug Dosing 48.72 mL/min Estimated GFR (MDRD) > 60 (>60) Glucose 107 H (74-106) mg/dL Calcium 8.7 (8.5-10.1) mg/dL Troponin I < 0.017 (0.000-0.056) ng/mL 09/09/20 Range/Units 11:35 WBC (4.5-11.0) K/uL RBC (3.30-5.50) M/uL Hgb (12.0-15.0) g/dL Hct (36.0-48.0) % MCV (80-98) fL MCH (27-31) pg MCHC (32-36) % Plt Count (150-400) K/uL D-Dimer, Quantitative (0.0-500.0) ng/mL Sodium (140-148) mmol/L Potassium (3.6-5.2) mmol/L Chloride (100-108) mmol/L Carbon Dioxide (21-32) mmol/L Anion Gap (5.0-14.0) mmol/L BUN (7-18) mg/dL Creatinine (0.6-1.0) mg/dL Est Cr Clr Drug Dosing mL/min Estimated GFR (MDRD) (>60) Glucose (74-106) mg/dL Calcium (8.5-10.1) mg/dL Troponin I < 0.017 (0.000-0.056) ng/mL Meds: Medications Discontinued Medications Generic Name Dose Route Start Last Admin Trade Name Cecily PRN Reason Stop Dose Admin Aspirin 324 mg 09/09/20 09:55 09/09/20 10:04 Aspirin 81 Mg Tab.Chew PO 09/09/20 09:56 324 mg ONETIME ONE Administration - Re-Assessments/Exams Free Text/Narrative Re-Assessment/Exam: 09/09/20 12:35 No pain with ambulation in the dept Departure - Departure Time of Disposition: 12:35 Disposition: Home, Self-Care 01 Condition: Good Clinical Impression: Nonspecific chest pain Instructions: Nonspecific Chest Pain, Adult, [id number] Referrals: Adán Mayfield MD [Primary Care Provider] - Forms: ED Department Discharge Additional Instructions: Acetaminophen for pain as needed. Continue your usual meds. Recheck as needed. Sepsis Event Note (ED) - Evaluation Sepsis Screening Result: No Definite Risk - Focused Exam Vital Signs: Vital Signs Temp Pulse Resp BP Pulse Ox 09/09/20 11:56 81 18 142/88 H 96 09/09/20 11:26 77 18 144/81 H 98 09/09/20 10:57 81 20 154/85 H 97 09/09/20 10:24 79 18 125/66 96 09/09/20 10:09 82 12 120/81 95 09/09/20 09:54 85 16 116/72 96 09/09/20 09:35 36.6 C 103 H 21 H 132/78 97 09/09/20 09:33 36.6 C 94 17 132/78 97 - My Orders Last 24 Hours: My Active Orders 09/09/20 09:54 EKG Documentation Completion [RC] ASDIRECTED EKG 12 Lead [EK] Routine - Assessment/Plan Last 24 Hours: My Active Orders 09/09/20 09:54 EKG Documentation Completion [RC] ASDIRECTED EKG 12 Lead [EK] Routine
[2020-09-09 12:01] VITALS: BP 142/88; PULSE 81
== END 2020-09-09 12:46 | disposition home or self-care (01) ==
LOC: JP.ED 09:13
DX: R07.9 Chest pain, unspecified (principal); Z88.1 Allergy status to other antibiotic agents; Z88.0 Allergy status to penicillin; Z88.2 Allergy status to sulfonamides; Z91.018 Allergy to other foods; Z91.011 Allergy to milk products; Z79.899 Other long term (current) drug therapy
CPT/HCPCS: 36415; 80048; 84484; 85027; 85379; 93005; 99285; A9270

== ENCOUNTER 2020-11-09 20:56 | Emergency (ER) | payer MEDICARE, MEDICAID ==
[2020-11-09 21:38] VITALS: BP 140/79; PULSE 87
--- NOTE | 2020-11-09 22:01 | EDM.PDOC ---
ED HPI GENERAL MEDICAL PROBLEM - General Chief Complaint: Bite:Animal, Insect Stated Complaint: BUT BITES? Time Seen by Provider: 11/09/20 22:00 Source of Information: Reports: Patient History Limitations: Reports: No Limitations - History of Present Illness INITIAL COMMENTS - FREE TEXT/NARRATIVE: Catherine presents today for complaints of red rash to left upper thigh and left upper arm that she noticed in the shower today. She denies pain, crusting and itching to the areas. She denies any recent exposure to pets, or ticks. She denies fever, chills, nausea, vomiting, change in bowel/bladder. - Related Data Allergies Allergy/AdvReac Type Severity Reaction Status Date / Time cefdinir [From Omnicef] Allergy Nausea Verified 11/09/20 22:04 fentanyl [From Duragesic] Allergy Other Verified 11/09/20 22:04 levofloxacin [From Levaquin] Allergy Rash Verified 11/09/20 22:04 nitrofurantoin Allergy Hives Verified 11/09/20 22:04 Penicillins Allergy Rash Verified 11/09/20 22:04 Sulfa (Sulfonamide Allergy Rash Verified 11/09/20 22:04 Antibiotics) lactose AdvReac Diarrhea Verified 11/09/20 22:04 oats AdvReac Stomach Verified 11/09/20 22:04 Upset Home Meds: Home Meds Multivitamin [Multivitamins] 1 each PO DAILY 02/25/20 [History] Ascorbic Acid 500 mg PO DAILY 10/06/20 [History] Cyanocobalamin (Vitamin B-12) [B-12] 500 mcg PO DAILY 10/06/20 [History] Diphenoxylate HCl/Atropine [Lomotil] 1 tab PO Q6H PRN 10/06/20 [History] Famotidine [Pepcid AC] 20 mg PO BID 10/06/20 [History] Lactase [Lactaid] 3,000 unit PO ASDIRECTED 10/06/20 [History] Triamcinolone Acetonide [Kenalog 0.1% Crm] 1 applic TOP TID 10/06/20 [History] ondansetron HCL [Zofran] 4 mg PO Q6H PRN 10/06/20 [History] Cholecalciferol (Vitamin D3) [Vitamin D3] 1,000 unit PO DAILY 10/07/20 [History] Past Medical History HEENT History: Reports: Glaucoma, Impaired Vision, Other (See Below) Other HEENT History: upper and lower dentures Cardiovascular History: Reports: Other (See Below) Other Cardiovascular History: rheumatic fever and rheumatic heart disease as child. 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 [employer]IAISON History: Reports: Musculoskeletal History: Reports: Other (See Below) Other Musculoskeletal History: Muscular dystrophy Neurological History: Reports: Headaches, Chronic Psychiatric History: Reports: Anxiety, Panic Attack Endocrine/Metabolic History: Reports: Other (See Below) Other Endocrine/Metabolic History: hyoglycemia- Hematologic History: Reports: Anemia Oncologic (Cancer) History: Reports: Other (See Below) Other Oncologic History: skin Dermatologic History: Reports: Melanoma, Other (See Below) Other Dermatologic History: skin lesions removed from lip, inner right thigh and left foot - Infectious Disease History Infectious Disease History: Reports: Chicken Pox, Measles, Mumps, Rheumatic Feve r, Rubella - Past Surgical History Head Surgeries/Procedures: Reports: None HEENT Surgical History: Reports: Oral Surgery Cardiovascular Surgical History: Reports: None Respiratory Surgical History: Reports: None GI Surgical History: Reports: Appendectomy, Cholecystectomy, EGD, Hernia Repair/Other, Small Bowel, Other (See Below) Other GI Surgeries/Procedures: esophageal repair. Esophageal dilation per Dr. Ge 04/17/2015 Female Surgical History: Reports: Hysterectomy, Other (See Below) Other Female Surgeries/Procedures: removal of left fallopian tube and ovary due to IUD Endocrine Surgical History: Reports: None Neurological Surgical History: Reports: None Musculoskeletal Surgical History: Reports: None Oncologic Surgical History: Reports: None Dermatological Surgical History: Reports: Skin Biopsy Social & Family History - Family History Family Medical History: No Pertinent Family History Cardiac: Reports: CAD, Heart Valve Replacement, Hypertension, [place] GI: Reports: Cholelithiasis, GERD Oncologic: Reports: Lymphoma, Ovarian - Caffeine Use Caffeine Use: Reports: Coffee, Tea - Living Situation & Occupation Living situation: Reports: , Alone (lives in [facility]ment for the past 18 years- she on the 6th floor and Son on the 4th floor. Sister lives in town. She has 4 adult children.) Occupation: Retired ED ROS GENERAL - Review of Systems Review Of Systems: See Below Constitutional: Reports: No Symptoms HEENT: Reports: No Symptoms Respiratory: Reports: No Symptoms Cardiovascular: Reports: No Symptoms Endocrine: Reports: No Symptoms GI/Abdominal: Reports: No Symptoms : Reports: No Symptoms Musculoskeletal: Reports: No Symptoms Skin: Reports: Rash (left upper thigh and left upper arm since this morning. ) Neurological: Reports: No Symptoms Psychiatric: Reports: No Symptoms Hematologic/Lymphatic: Reports: No Symptoms Immunologic: Reports: No Symptoms ED EXAM, SKIN/RASH Exam: See Below General Appearance: Alert, WD/WN, No Apparent Distress Respiratory/Chest: No Respiratory Distress, Lungs Clear, Normal Breath Sounds, No Accessory Muscle Use, Chest Non-Tender Cardiovascular: Normal Peripheral Pulses, Regular Rate, Rhythm, No Murmur, No Rub, Other (trace edema of bilateral lower legs, patient reports this is per her normal. ) Peripheral Pulses: 3+: Dorsalis Pedis (L), Dorsalis Pedis (R), 4+: Radial (L), Radial (R) Back Exam: Normal Inspection, Full Range of Motion. No: CVA Tenderness (R), CVA Tenderness (L) Extremities: Normal Inspection, Normal Range of Motion, Non-Tender, Normal Capillary Refill Neurological: Alert, Oriented, Normal Cognition, No Motor/Sensory Deficits Psychiatric: Normal Affect, Normal Mood Skin: Warm, Dry, Intact, Rash (petechia/purpura type circular/oval lesions x 2 to left upper thigh and to left upper arm. No pruritis noted. No drainage, weeping, scaling noted. ) Associated features: No: Warmth, Tenderness, Swelling, Induration, Scaling, Infl ammation, Crusting, Weeping Lymphatic: No Adenopathy Course - Vital Signs Last Recorded V/S: Last Vital Signs Temp 36.3 C 11/09/20 22:07 Pulse 87 11/09/20 22:07 Resp 16 11/09/20 22:07 BP 140/79 11/09/20 22:07 Pulse Ox 95 11/09/20 22:07 - Orders/Labs/Meds Meds: Medications Discontinued Medications Generic Name Dose Route Start Last Admin Trade Name Freq PRN Reason Stop Dose Admin Hydrocortisone 30 gm 11/09/20 22:09 Hydrocortisone 1% Crm 30 Gm Tube TOP 11/09/20 22:10 ASDIRECTED ONE Departure - Departure Time of Disposition: 22:15 Disposition: Home, Self-Care 01 Condition: Good Clinical Impression: Petechial rash - Discharge Information *PRESCRIPTION DRUG MONITORING PROGRAM REVIEWED*: Not Applicable *COPY OF PRESCRIPTION DRUG MONITORING REPORT IN PATIENT TANYA: Not Applicable Referrals: Adán Mayfield MD [Primary Care Provider] - Forms: ED Department Discharge Additional Instructions: You have been evaluated for a petechia type rash. Shower and bathe per your normal. Watch and monitor the area. Use hydrocortisone to the rash twice per day for 7 days. Follow up with your primary provider in 7 to 14 days for a recheck as needed. Return to the emergency room for any worsening, issues or concerns. Sepsis Event Note (ED) - Focused Exam Vital Signs: Vital Signs Temp Pulse Resp BP Pulse Ox 11/09/20 22:07 36.3 C 87 16 140/79 95 11/09/20 21:36 36.3 C 87 16 140/79 95 - Assessment/Plan Assessment:: Petechial rash Plan: Patietn evaluated for a petechia type rash. Shower and bathe per your normal. Watch and monitor the area. Use hydrocortisone to the rash twice per day for 7 days. Follow up with primary provider in 7 to 14 days for a recheck as needed. Return to the emergency room for any worsening, issues or concerns.
[2020-11-09] MEDS ORDERED: Hydrocortisone 1% Crm 30 GM Tube TOP ONE (22:09)
== END 2020-11-09 22:41 | disposition home or self-care (01) ==
LOC: JP.ED 20:56
DX: R23.3 Spontaneous ecchymoses (principal); K21.9 Gastro-esophageal reflux disease without esophagitis; Z88.1 Allergy status to other antibiotic agents; Z88.5 Allergy status to narcotic agent; Z88.0 Allergy status to penicillin; Z88.2 Allergy status to sulfonamides; Z91.018 Allergy to other foods; Z79.899 Other long term (current) drug therapy
CPT/HCPCS: 99282; A9270

== ENCOUNTER 2020-12-30 09:10 | Emergency (ER) | payer MEDICARE, MEDICAID ==
[2020-12-30 10:03] VITALS: BP 138/80; PULSE 109
--- NOTE | 2020-12-30 10:47 | EDM.PDOC ---
ED HPI GENERAL MEDICAL PROBLEM - General Chief Complaint: ENT Problem Stated Complaint: NAUSEA,HEADAHCE,RUNNY NOSE,SCRATCHY THROAT Time Seen by Provider: 12/30/20 10:20 Source of Information: Reports: Patient History Limitations: Reports: No Limitations - History of Present Illness INITIAL COMMENTS - FREE TEXT/NARRATIVE: 75-year-old female has general malaise, runny nose and mild cough for the past 3 to 4 days and she is worried she may have Covid despite being fully vaccinated. No fevers or chills, no significant shortness of breath. She is very anxious about her health. She is completely stable. Onset: Gradual Duration: Day(s): (4 days of symptoms) Associated Symptoms: Reports: Cough, Malaise, Other (Nasal congestion, scratchy throat) - Related Data Allergies Allergy/AdvReac Type Severity Reaction Status Date / Time cefdinir [From Omnicef] Allergy Nausea Verified 12/30/20 10:10 fentanyl [From Duragesic] Allergy Other Verified 12/30/20 10:10 levofloxacin [From Levaquin] Allergy Rash Verified 12/30/20 10:10 nitrofurantoin Allergy Hives Verified 12/30/20 10:10 Penicillins Allergy Rash Verified 12/30/20 10:10 Sulfa (Sulfonamide Allergy Rash Verified 12/30/20 10:10 Antibiotics) lactose AdvReac Diarrhea Verified 12/30/20 10:10 oats AdvReac Stomach Verified 12/30/20 10:10 Upset Home Meds: Home Meds Multivitamin [Multivitamins] 1 each PO DAILY 02/25/20 [History] Ascorbic Acid 500 mg PO DAILY 10/06/20 [History] Cyanocobalamin (Vitamin B-12) [B-12] 500 mcg PO DAILY 10/06/20 [History] Lactase [Lactaid] 3,000 unit PO ASDIRECTED 10/06/20 [History] Triamcinolone Acetonide [Kenalog 0.1% Crm] 1 applic TOP TID 10/06/20 [History] Cholecalciferol (Vitamin D3) [Vitamin D3] 1,000 unit PO DAILY 10/07/20 [History] Past Medical History HEENT History: Reports: Glaucoma, Impaired Vision, Other (See Below) Other HEENT History: upper and lower dentures Cardiovascular History: Reports: Other (See Below) Other Cardiovascular History: rheumatic fever and rheumatic heart disease as child. Respiratory History: Reports: Bronchitis, Recurrent, Pneumonia, Recurrent Gastrointestinal History: Reports: Bowel Obstruction, GERD, Hiatal Hernia Genitourinary History: Reports: Urinary Incontinence [employer]ORER [employer]AN[employer] History: Reports: Musculoskeletal History: Reports: Other (See Below) Other Musculoskeletal History: Muscular dystrophy Neurological History: Reports: Headaches, Chronic Psychiatric History: Reports: Anxiety, Panic Attack Endocrine/Metabolic History: Reports: Other (See Below) Other Endocrine/Metabolic History: hyoglycemia- Hematologic History: Reports: Anemia Oncologic (Cancer) History: Reports: Other (See Below) Other Oncologic History: skin Dermatologic History: Reports: Melanoma, Other (See Below) Other Dermatologic History: skin lesions removed from lip, inner right thigh and left foot - Infectious Disease History Infectious Disease History: Reports: Chicken Pox, Measles, Mumps, Rheumatic Fever, Rubella - Past Surgical History Head Surgeries/Procedures: Reports: None HEENT Surgical History: Reports: Oral Surgery Cardiovascular Surgical History: Reports: None Respiratory Surgical History: Reports: None GI Surgical History: Reports: Appendectomy, Cholecystectomy, EGD, Hernia Repair/Other, Small Bowel, Other (See Below) Other GI Surgeries/Procedures: esophageal repair. Esophageal dilation per Dr. Ge 04/17/2015 Female Surgical History: Reports: Hysterectomy, Other (See Below) Other Female Surgeries/Procedures: removal of left fallopian tube and ovary due to IUD Endocrine Surgical History: Reports: None Neurological Surgical History: Reports: None Musculoskeletal Surgical History: Reports: None Oncologic Surgical History: Reports: None Dermatological Surgical History: Reports: Skin Biopsy Social & Family History - Family History Family Medical History: No Pertinent Family History Cardiac: Reports: CAD, Heart Valve Replacement, Hypertension, [place] GI: Reports: Cholelithiasis, GERD Oncologic: Reports: Lymphoma, Ovarian - Tobacco Use Tobacco Use Status *Q: Former Tobacco User Years of Tobacco use: 25 Packs/Tins Daily: 1 Used Tobacco, but Quit: Yes Month/Year Tobacco Last Used: - Caffeine Use Caffeine Use: Reports: Coffee, Tea - Recreational Drug Use Recreational Drug Use: No - Living Situation & Occupation Living situation: Reports: , Alone (lives in [facility] Apartment for the past 18 years- she on the 6th floor and Son on the 4th floor. Sister lives in town. She has 4 adult children.) Occupation: Retired ED ROS GENERAL - Review of Systems Review Of Systems: See Below Constitutional: Denies: Fever, Chills HEENT: Reports: No Symptoms Respiratory: Reports: Cough. Denies: Shortness of Breath Cardiovascular: Denies: Chest Pain GI/Abdominal: Reports: No Symptoms Neurological: Reports: No Symptoms. Denies: Dizziness, Headache Psychiatric: Reports: Anxiety ED EXAM, GENERAL - Physical Exam Exam: See Below Exam Limited By: No Limitations General Appearance: Alert, No Apparent Distress Ears: Normal TMs Head: Atraumatic Respiratory/Chest: No Respiratory Distress, Lungs Clear Cardiovascular: Regular Rate, Rhythm GI/Abdominal: Non-Tender Extremities: Normal Inspection. No: Pedal Edema Neurological: Alert, Oriented Psychiatric: Anxious Skin Exam: Warm, Dry Course - Vital Signs Last Recorded V/S: Last Vital Signs Temp 98.4 F 12/30/20 10:15 Pulse 109 H 12/30/20 10:15 Resp 20 12/30/20 10:15 BP 138/80 12/30/20 10:15 Pulse Ox 95 12/30/20 10:15 - Orders/Labs/Meds Orders: Active Orders 24 hr Category Date Time Status Isolation [COMM] Stat Oth 12/30/20 10:10 Ordered Labs: Laboratory Tests 12/30/20 Range/Units 10:16 Influenza Type A RNA Negative (NEGATIVE) RSV RNA (INAAT) Positive H (NEGATIVE) Influenza Type B RNA Negative (NEGATIVE) SARS-CoV-2 RNA (MISSY) Negative (NEGATIVE) - Re-Assessments/Exams Free Text/Narrative Re-Assessment/Exam: 12/30/20 11:17 4 Plex study was done which shows RSV, patient was reassured that this will run its course as a common cold but she can always come in if worsening. Departure - Departure Time of Disposition: 11:27 Disposition: Home, Self-Care 01 Clinical Impression: RSV (respiratory syncytial virus infection) - Discharge Information Instructions: Respiratory Syncytial Virus Test Referrals: Adán Mayfield MD [Primary Care Provider] - Forms: ED Department Discharge Care Plan Goals: Treat like a common cold, [id number] symptom relief as needed and return if worsening such as difficulty breathing. Sepsis Event Note (ED) - Evaluation Sepsis Screening Result: No Definite Risk - Focused Exam Vital Signs: Vital Signs Temp Pulse Resp BP Pulse Ox 12/30/20 10:15 98.4 F 109 H 20 138/80 95 12/30/20 10:01 98.4 F 109 H 20 138/80 95 - My Orders Last 24 Hours: My Active Orders 12/30/20 10:10 Isolation [COMM] Stat - Assessment/Plan Last 24 Hours: My Active Orders 12/30/20 10:10 Isolation [COMM] Stat
[2020-12-30 11:05] LABS: CORONAVIRUS COVID-19 NAA NEGATIVE (NEGATIVE)
== END 2020-12-30 11:27 | disposition home or self-care (01) ==
LOC: JP.ED 09:10
DX: R53.81 Other malaise (principal); R09.89 Other specified symptoms and signs involving the circulatory and respiratory systems; R05.9 Cough, unspecified; B97.4 Respiratory syncytial virus as the cause of diseases classified elsewhere; Z88.8 Allergy status to other drugs, medicaments and biological substances; Z88.0 Allergy status to penicillin; Z88.2 Allergy status to sulfonamides; Z79.899 Other long term (current) drug therapy; Z87.891 Personal history of nicotine dependence; Z20.822 Contact with and (suspected) exposure to COVID-19
CPT/HCPCS: 0241U; 99283

== ENCOUNTER 2022-07-01 14:44 | Emergency (ER) | payer MEDICARE, MEDICAID ==
[2022-07-01 14:57] VITALS: BP 153/84; PULSE 80
== END 2022-07-01 16:23 | disposition home or self-care (01) ==
LOC: JP.ED 14:44
DX: F41.9 Anxiety disorder, unspecified (principal); Z88.1 Allergy status to other antibiotic agents; Z88.6 Allergy status to analgesic agent; Z88.0 Allergy status to penicillin; Z88.2 Allergy status to sulfonamides; Z91.011 Allergy to milk products; Z91.018 Allergy to other foods; Z79.899 Other long term (current) drug therapy
CPT/HCPCS: 99282

== ENCOUNTER 2022-09-05 15:32 | Emergency (ER) | payer MEDICARE, MEDICAID ==
[2022-09-05 15:47] VITALS: BP 158/92; PULSE 89
== END 2022-09-05 16:55 | disposition home or self-care (01) ==
LOC: JP.ED 15:32
DX: H53.8 Other visual disturbances (principal); Z88.1 Allergy status to other antibiotic agents; Z88.5 Allergy status to narcotic agent; Z88.0 Allergy status to penicillin; Z88.2 Allergy status to sulfonamides; Z91.011 Allergy to milk products; Z91.048 Other nonmedicinal substance allergy status; Z88.8 Allergy status to other drugs, medicaments and biological substances; Z79.899 Other long term (current) drug therapy; Z90.49 Acquired absence of other specified parts of digestive tract; Z90.710 Acquired absence of both cervix and uterus
CPT/HCPCS: 99283

== ENCOUNTER 2023-01-25 00:43 | Emergency (ER) | payer MEDICARE, MEDICAID ==
[2023-01-25 01:31] LABS: BASOPHILS ABSOLUTE AUTO 0.09 K/uL (0.00-0.10); BASOPHILS PERCENT AUTO 1.1 % (0.1-1.3); EOSINOPHILS ABSOLUTE AUTO 0.36 K/uL (0.00-0.40); EOSINOPHILS PERCENT AUTO 4.6 % (0.0-5.4); HEMATOCRIT 38.4 % (34.3-46.0); HEMOGLOBIN 13.1 g/dL (11.2-15.5); IMMATURE GRAN PERCENT AUTO 0.3 % (0.0-0.7); LYMPHOCYTES ABSOLUTE AUTO 2.76 K/uL (0.8-3.3); LYMPHOCYTES PERCENT AUTO 35.2 % (11.4-47.7); MEAN CORPUSCULAR HEMOGLOBIN 31.6 pg (31.6-35.5); MEAN CORPUSCULAR HGB CONC 34.1 g/dL (31.6-35.5); MEAN CORPUSCULAR VOLUME 92.8 fL (81.4-99.0); MONOCYTES ABSOLUTE AUTO 0.72 K/uL (0.20-0.90); MONOCYTES PERCENT AUTO 9.2 % (3.3-12.6); NEUTROPHILS ABSOLUTE AUTO 3.88 K/uL (1.0-7.6); NEUTROPHILS PERCENT AUTO 49.6 % (40.0-78.1); PLATELET COUNT,PLT 285 K/uL (130-375); RED BLOOD CELL COUNT 4.14 M/uL (3.77-5.24); WHITE BLOOD CELL COUNT,WBC 7.8 K/uL (3.2-11.0)
[2023-01-25 01:40] LABS: IMMATURE GRAN ABSOLUTE AUTO 0.02 K/uL (0.00-0.23)
[2023-01-25 01:44] LABS: BLOOD UREA NITROGEN,BUN 13 mg/dL (7-18); CALCIUM 8.8 mg/dL (8.5-10.1); CARBON DIOXIDE,CO2 26 mmol/L (21-32); CHLORIDE,CL 104 mmol/L (100-108); CREATININE 0.9 mg/dL (0.6-1.0); ESTIMATED GFR 65 mL/min (>60); GLUCOSE RANDOM 93 mg/dL (74-106); POTASSIUM,K 3.5 mmol/L (3.6-5.2); SODIUM,NA 140 mmol/L (140-148)
[2023-01-25 01:46] LABS: ANION GAP 13.5 mmol/L (5.0-14.0)
[2023-01-25 02:08] LABS: CORONAVIRUS COVID-19 NAA NEGATIVE (NEGATIVE); INFLUENZA A NAA NEGATIVE (NEGATIVE); INFLUENZA B NAA NEGATIVE (NEGATIVE); RESPIRATORY SYNCYTIAL VIR NAA NEGATIVE (NEGATIVE)
[2023-01-25] MEDS: Sodium Chloride 0.9% 1,000 ML IV SCH (03:38)
[2023-01-25] MEDS ORDERED: fentaNYL 100 MCG/2 ML SDV ONE (08:03)
[2023-01-25] MEDS ORDERED: Rocuronium 50 MG/5 ML Vial ONE (08:16)
[2023-01-25] MEDS ORDERED: Propofol 200 MG/20 ML SDV ONE (08:16)
[2023-01-25] MEDS ORDERED: Ondansetron 4 MG/2 ML SDV ONE (08:16)
[2023-01-25] MEDS ORDERED: Succinylcholine 200 MG/10 ML MDV ONE (08:16)
[2023-01-25] MEDS ORDERED: Dexamethasone 4 MG/ML SDV ONE (08:16)
[2023-01-25 11:07] VITALS: BP 146/80; PULSE 70
[2023-01-25] MEDS: Pantoprazole 40 MG Tab.CR PO SCH (11:07)
== END 2023-01-25 12:45 | disposition home or self-care (01) ==
LOC: JP.ED 00:43 → JP.ICU 02:31
PROVIDERS: ADMIT Family Medicine; ATTEND Family Medicine
DX: T18.108A Unspecified foreign body in esophagus causing other injury, initial encounter (principal); R13.10 Dysphagia, unspecified; Z88.2 Allergy status to sulfonamides; Z91.011 Allergy to milk products; Z88.0 Allergy status to penicillin; Z88.8 Allergy status to other drugs, medicaments and biological substances; Z91.018 Allergy to other foods; Z79.899 Other long term (current) drug therapy; Z90.49 Acquired absence of other specified parts of digestive tract; Z90.710 Acquired absence of both cervix and uterus; Z87.891 Personal history of nicotine dependence; Z20.822 Contact with and (suspected) exposure to COVID-19
CPT/HCPCS: 0241U; 36415; 80048; 85025; 93005; 99284; A9270; G0378; J0330; J1100; J2405; J2704; J3010; J7030; J3490

== ENCOUNTER 2024-03-06 15:01 | Emergency (ER) | payer MEDICARE, MEDICAID ==
[2024-03-06 16:02] VITALS: BP 194/105; PULSE 69
[2024-03-06 16:59] LABS: BASOPHILS ABSOLUTE AUTO 0.05 K/uL (0.00-0.10); BASOPHILS PERCENT AUTO 0.8 % (0.1-1.3); EOSINOPHILS ABSOLUTE AUTO 0.22 K/uL (0.00-0.40); EOSINOPHILS PERCENT AUTO 3.7 % (0.0-5.4); HEMATOCRIT 38.5 % (34.3-46.0); HEMOGLOBIN 13.4 g/dL (11.2-15.5); IMMATURE GRAN PERCENT AUTO 0.3 % (0.0-0.7); LYMPHOCYTES ABSOLUTE AUTO 1.21 K/uL (0.8-3.3); LYMPHOCYTES PERCENT AUTO 20.5 % (11.4-47.7); MEAN CORPUSCULAR HEMOGLOBIN 32.1 pg (31.6-35.5); MEAN CORPUSCULAR HGB CONC 34.8 g/dL (31.6-35.5); MEAN CORPUSCULAR VOLUME 92.1 fL (81.4-99.0); MONOCYTES ABSOLUTE AUTO 0.46 K/uL (0.20-0.90); MONOCYTES PERCENT AUTO 7.8 % (3.3-12.6); NEUTROPHILS ABSOLUTE AUTO 3.95 K/uL (1.0-7.6); NEUTROPHILS PERCENT AUTO 66.9 % (40.0-78.1); PLATELET COUNT,PLT 273 K/uL (130-375); RED BLOOD CELL COUNT 4.18 M/uL (3.77-5.24); WHITE BLOOD CELL COUNT,WBC 5.9 K/uL (3.2-11.0)
[2024-03-06 17:08] LABS: IMMATURE GRAN ABSOLUTE AUTO 0.02 K/uL (0.00-0.23)
[2024-03-06 17:19] LABS: ALANINE AMINOTRANSFERASE,ALT 33 U/L (12-78); ALBUMIN 3.7 g/dL (3.4-5.0); ALKALINE PHOSPHATASE 203 U/L (46-116); ANION GAP 8.9 mmol/L (5.0-14.0); ASPARTATE AMNIOTRANSFERASE,AST 27 U/L (15-37); BILIRUBIN TOTAL 0.3 mg/dL (0.2-1.0); BLOOD UREA NITROGEN,BUN 15 mg/dL (7-18); CALCIUM 9.5 mg/dL (8.5-10.1); CARBON DIOXIDE,CO2 30 mmol/L (21-32); CHLORIDE,CL 103 mmol/L (100-108); CREATININE 0.7 mg/dL (0.6-1.0); EST CRCL DRUG DOSING (CG) 53.02 mL/min; ESTIMATED GFR 87 mL/min (>60); GLUCOSE RANDOM 111 mg/dL (74-106); POTASSIUM,K 4.9 mmol/L (3.6-5.2); PROTEIN TOTAL,TP 7.3 g/dL (6.4-8.2); SODIUM,NA 142 mmol/L (140-148)
[2024-03-06 17:21] LABS: C-REACTIVE PROTEIN < 0.50 mg/dL (<0.50)
[2024-03-06 17:31] LABS: BILIRUBIN,URINE NEGATIVE (NEGATIVE); COLOR,URINE YELLOW (YELLOW); GLUCOSE,URINE NEGATIVE (NEGATIVE); KETONES,URINE NEGATIVE (NEGATIVE); LEUKOCYTE ESTERASE,URINE TRACE (NEGATIVE); NITRITE,URINE NEGATIVE (NEGATIVE); OCCULT BLOOD,URINE TRACE-INTACT (NEGATIVE); PROTEIN,URINE NEGATIVE (NEGATIVE); UROBILINOGEN,URINE 0.2 EU/dL (0.2-1.0)
[2024-03-06 17:38] LABS: AMORPHOUS SEDIMENT,URINE NOT SEEN; APPEARANCE,URINE SLIGHTLY CLOUDY (CLEAR); BACTERIA,URINE MODERATE; EPITHELIAL CELLS,URINE RARE; MUCUS,URINE NOT SEEN; RBC,URINE 0-5 (0-5); WBC,URINE 0-5 (0-5)
== END 2024-03-06 18:50 | disposition home or self-care (01) ==
LOC: JP.ED 15:01
DX: R11.0 Nausea (principal); K21.9 Gastro-esophageal reflux disease without esophagitis; Z79.899 Other long term (current) drug therapy; Z91.018 Allergy to other foods; Z88.0 Allergy status to penicillin; Z88.2 Allergy status to sulfonamides; Z88.5 Allergy status to narcotic agent; Z88.8 Allergy status to other drugs, medicaments and biological substances; Z87.891 Personal history of nicotine dependence
CPT/HCPCS: 36415; 80053; 81001; 85025; 86140; 99284

== ENCOUNTER 2024-09-09 12:06 | Emergency (ER) | payer MEDICARE, MEDICAID ==
[2024-09-09 14:18] VITALS: BP 148/83; PULSE 70
[2024-09-09 14:37] LABS: APPEARANCE,URINE CLEAR (CLEAR); GLUCOSE,URINE NEGATIVE (NEGATIVE); OCCULT BLOOD,URINE TRACE-INTACT (NEGATIVE)
[2024-09-09 14:45] LABS: SQUAMOUS EPITHELIAL CELLS,UR RARE /HPF; UROTHELIAL CELLS,URINE NOT SEEN /HPF
[2024-09-09 14:59] LABS: BASOPHILS ABSOLUTE AUTO 0.04 K/uL (0.00-0.10); BASOPHILS PERCENT AUTO 0.7 % (0.1-1.3); EOSINOPHILS ABSOLUTE AUTO 0.09 K/uL (0.00-0.40); EOSINOPHILS PERCENT AUTO 1.6 % (0.0-5.4); IMMATURE GRAN PERCENT AUTO 0.4 % (0.0-0.7); LYMPHOCYTES ABSOLUTE AUTO 1.17 K/uL (0.8-3.3); LYMPHOCYTES PERCENT AUTO 20.6 % (11.4-47.7); MONOCYTES ABSOLUTE AUTO 0.29 K/uL (0.20-0.90); MONOCYTES PERCENT AUTO 5.1 % (3.3-12.6); NEUTROPHILS ABSOLUTE AUTO 4.07 K/uL (1.0-7.6); NEUTROPHILS PERCENT AUTO 71.6 % (40.0-78.1); RED BLOOD CELL COUNT 4.08 M/uL (3.77-5.24); WHITE BLOOD CELL COUNT,WBC 5.7 K/uL (3.2-11.0)
[2024-09-09 15:09] LABS: BLOOD UREA NITROGEN,BUN 13.0 mg/dL (7-18); CARBON DIOXIDE,CO2 29.0 mmol/L (21-32); CHLORIDE,CL 103.0 mmol/L (100-108); CREATININE 0.8 mg/dL (0.6-1.0); EST CRCL DRUG DOSING (CG) 45.62 mL/min; ESTIMATED GFR 74.0 mL/min (>60); GLUCOSE RANDOM 165.0 mg/dL (74-106); IMMATURE GRAN ABSOLUTE AUTO 0.02 K/uL (0.00-0.23); POTASSIUM,K 3.9 mmol/L (3.6-5.2); SODIUM,NA 139.0 mmol/L (140-148)
[2024-09-09 15:12] LABS: PLATELET COUNT,PLT 161 K/uL (130-375)
== END 2024-09-09 15:43 | disposition home or self-care (01) ==
LOC: JP.ED 12:06
DX: R20.2 Paresthesia of skin (principal); R53.81 Other malaise; Z88.8 Allergy status to other drugs, medicaments and biological substances; Z88.2 Allergy status to sulfonamides; Z88.0 Allergy status to penicillin; Z88.1 Allergy status to other antibiotic agents; Z91.018 Allergy to other foods; Z79.899 Other long term (current) drug therapy
CPT/HCPCS: 36415; 80048; 81001; 85025; 99284

== ENCOUNTER 2024-10-02 13:42 | Emergency (ER) | payer MEDICARE, MEDICAID ==
[2024-10-02] MEDS: Alum Hydrox/Mag Hydrox/Simeth 15 ML, Lidocaine 2% 15 ML PO ONE (15:08)
[2024-10-02 15:38] VITALS: BP 177/87; PULSE 77
== END 2024-10-02 16:02 | disposition home or self-care (01) ==
LOC: JP.ED 13:42
DX: T18.128A Food in esophagus causing other injury, initial encounter (principal); K21.9 Gastro-esophageal reflux disease without esophagitis; Z90.49 Acquired absence of other specified parts of digestive tract; Z90.710 Acquired absence of both cervix and uterus; Z88.0 Allergy status to penicillin; Z88.2 Allergy status to sulfonamides; Z88.5 Allergy status to narcotic agent; Z88.8 Allergy status to other drugs, medicaments and biological substances; Z91.018 Allergy to other foods; Z79.899 Other long term (current) drug therapy
CPT/HCPCS: 99283; A9270

== ENCOUNTER → 2024-10-19 | Day surgery (SDC) | payer MEDICARE, MEDICAID ==
[~2024-10-19] MED LIST: Propofol 200 MG/20 ML SDV ONE
[2024-10-19] MEDS: Lactated Ringers 1,000 ML IV SCH (08:16)
[2024-10-19 10:18] VITALS: BP 125/82; PULSE 74
== END ==
LOC: JP.SDS 07:01
PROVIDERS: ATTEND Surgery
DX: K29.50 Unspecified chronic gastritis without bleeding (principal); K22.70 Barrett's esophagus without dysplasia; K20.90 Esophagitis, unspecified without bleeding; K31.89 Other diseases of stomach and duodenum
CPT/HCPCS: 00731; 43239; J2704; J7120; 88305; 88312; 88342

== ENCOUNTER 2024-10-29 10:08 | Emergency (ER) | payer MEDICARE, MEDICAID ==
[2024-10-29 10:35] VITALS: BP 159/82; PULSE 76
== END 2024-10-29 12:37 | disposition home or self-care (01) ==
LOC: JP.ED 10:08
DX: R14.2 Eructation (principal); K21.9 Gastro-esophageal reflux disease without esophagitis; Z88.0 Allergy status to penicillin; Z88.1 Allergy status to other antibiotic agents; Z88.2 Allergy status to sulfonamides; Z91.011 Allergy to milk products; Z91.018 Allergy to other foods; Z88.8 Allergy status to other drugs, medicaments and biological substances; Z79.899 Other long term (current) drug therapy; Z90.49 Acquired absence of other specified parts of digestive tract; Z90.710 Acquired absence of both cervix and uterus; Z87.891 Personal history of nicotine dependence
CPT/HCPCS: 99283; A9270

== ENCOUNTER 2024-11-10 16:56 | Emergency (ER) | payer MEDICARE, MEDICAID ==
[2024-11-10 18:43] VITALS: BP 176/85; PULSE 77
[2024-11-10 19:12] LABS: BASOPHILS ABSOLUTE AUTO 0.04 K/uL (0.00-0.10); BASOPHILS PERCENT AUTO 0.7 % (0.1-1.3); EOSINOPHILS ABSOLUTE AUTO 0.20 K/uL (0.00-0.40); EOSINOPHILS PERCENT AUTO 3.6 % (0.0-5.4); IMMATURE GRAN PERCENT AUTO 0.2 % (0.0-0.7); LYMPHOCYTES ABSOLUTE AUTO 1.47 K/uL (0.8-3.3); LYMPHOCYTES PERCENT AUTO 26.3 % (11.4-47.7); MONOCYTES ABSOLUTE AUTO 0.55 K/uL (0.20-0.90); MONOCYTES PERCENT AUTO 9.8 % (3.3-12.6); NEUTROPHILS ABSOLUTE AUTO 3.33 K/uL (1.0-7.6); NEUTROPHILS PERCENT AUTO 59.4 % (40.0-78.1); PLATELET COUNT,PLT 255 K/uL (130-375); RED BLOOD CELL COUNT 4.13 M/uL (3.77-5.24); WHITE BLOOD CELL COUNT,WBC 5.6 K/uL (3.2-11.0)
[2024-11-10 19:20] LABS: IMMATURE GRAN ABSOLUTE AUTO 0.01 K/uL (0.00-0.23)
[2024-11-10 19:36] LABS: BLOOD UREA NITROGEN,BUN 11.0 mg/dL (7-18); CARBON DIOXIDE,CO2 29.0 mmol/L (21-32); CHLORIDE,CL 103.0 mmol/L (100-108); CREATININE 0.7 mg/dL (0.6-1.0); EST CRCL DRUG DOSING (CG) 47.56 mL/min; ESTIMATED GFR 87.0 mL/min (>60); GLUCOSE RANDOM 106.0 mg/dL (74-106); POTASSIUM,K 3.9 mmol/L (3.6-5.2); SODIUM,NA 142.0 mmol/L (140-148); TROPONIN I HIGH SENSITIVITY 9.3 pg/mL (<=60.3)
== END 2024-11-10 20:27 | disposition home or self-care (01) ==
LOC: JP.ED 16:56
DX: M79.89 Other specified soft tissue disorders (principal); T36.7X5A Adverse effect of antifungal antibiotics, systemically used, initial encounter; K21.9 Gastro-esophageal reflux disease without esophagitis; Z88.0 Allergy status to penicillin; Z88.1 Allergy status to other antibiotic agents; Z88.2 Allergy status to sulfonamides; Z88.5 Allergy status to narcotic agent; Z91.0110 Allergy to milk products, unspecified; Z91.018 Allergy to other foods; Z79.899 Other long term (current) drug therapy; Z90.49 Acquired absence of other specified parts of digestive tract; Z90.710 Acquired absence of both cervix and uterus
CPT/HCPCS: 36415; 80048; 83605; 84484; 85025; 99283

== ENCOUNTER 2024-11-19 04:15 | Emergency (ER) | payer MEDICARE, MEDICAID ==
[2024-11-19 05:07] VITALS: BP 158/83; PULSE 70
== END 2024-11-19 05:06 | disposition home or self-care (01) ==
LOC: JP.ED 04:15
DX: K21.9 Gastro-esophageal reflux disease without esophagitis (principal); Z79.899 Other long term (current) drug therapy; Z88.2 Allergy status to sulfonamides; Z88.0 Allergy status to penicillin; Z88.8 Allergy status to other drugs, medicaments and biological substances; Z91.0110 Allergy to milk products, unspecified; Z90.49 Acquired absence of other specified parts of digestive tract; Z90.710 Acquired absence of both cervix and uterus
CPT/HCPCS: 99283

== ENCOUNTER 2024-11-19 12:39 | Emergency (ER) | payer MEDICARE, MEDICAID ==
[2024-11-19 13:11] VITALS: BP 164/92; PULSE 78
[2024-11-19] MEDS ORDERED: Sodium Chloride 0.9% 10 ML Syringe FLUSH PRN (13:19)
[2024-11-19 13:34] LABS: BASOPHILS ABSOLUTE AUTO 0.04 K/uL (0.00-0.10); BASOPHILS PERCENT AUTO 0.7 % (0.1-1.3); EOSINOPHILS ABSOLUTE AUTO 0.11 K/uL (0.00-0.40); EOSINOPHILS PERCENT AUTO 1.8 % (0.0-5.4); IMMATURE GRAN PERCENT AUTO 0.2 % (0.0-0.7); LYMPHOCYTES ABSOLUTE AUTO 1.47 K/uL (0.8-3.3); LYMPHOCYTES PERCENT AUTO 24.1 % (11.4-47.7); MONOCYTES ABSOLUTE AUTO 0.45 K/uL (0.20-0.90); MONOCYTES PERCENT AUTO 7.4 % (3.3-12.6); NEUTROPHILS ABSOLUTE AUTO 4.01 K/uL (1.0-7.6); NEUTROPHILS PERCENT AUTO 65.8 % (40.0-78.1); PLATELET COUNT,PLT 257 K/uL (130-375); RED BLOOD CELL COUNT 4.24 M/uL (3.77-5.24); WHITE BLOOD CELL COUNT,WBC 6.1 K/uL (3.2-11.0)
[2024-11-19 13:40] LABS: IMMATURE GRAN ABSOLUTE AUTO 0.01 K/uL (0.00-0.23)
[2024-11-19 13:56] LABS: A/G RATIO 1.2 (1.2-2.2); ALANINE AMINOTRANSFERASE,ALT 26 U/L (12-78); ASPARTATE AMNIOTRANSFERASE,AST 21 U/L (15-37); BILIRUBIN TOTAL 0.3 mg/dL (0.2-1.0); BLOOD UREA NITROGEN,BUN 11 mg/dL (7-18); CARBON DIOXIDE,CO2 30 mmol/L (21-32); CHLORIDE,CL 102 mmol/L (100-108); CREATININE 0.8 mg/dL (0.6-1.0); EST CRCL DRUG DOSING (CG) 41.62 mL/min; ESTIMATED GFR 74 mL/min (>60); GLUCOSE RANDOM 92 mg/dL (74-106); POTASSIUM,K 3.9 mmol/L (3.6-5.2); PROTEIN TOTAL,TP 6.6 g/dL (6.4-8.2); SODIUM,NA 139 mmol/L (140-148); TROPONIN I HIGH SENSITIVITY 6.8 pg/mL (<=60.3)
[2024-11-19 14:08] LABS: APPEARANCE,URINE CLEAR (CLEAR); GLUCOSE,URINE NEGATIVE (NEGATIVE); OCCULT BLOOD,URINE TRACE-LYSED (NEGATIVE)
[2024-11-19 14:14] LABS: SQUAMOUS EPITHELIAL CELLS,UR RARE /HPF; UROTHELIAL CELLS,URINE NOT SEEN /HPF
== END 2024-11-19 16:10 | disposition home or self-care (01) ==
LOC: JP.ED 12:39
DX: R51.9 Headache, unspecified (principal); R53.81 Other malaise; K21.9 Gastro-esophageal reflux disease without esophagitis; Z88.0 Allergy status to penicillin; Z88.8 Allergy status to other drugs, medicaments and biological substances; Z88.2 Allergy status to sulfonamides; Z90.49 Acquired absence of other specified parts of digestive tract; Z90.710 Acquired absence of both cervix and uterus
CPT/HCPCS: 36415; 71046; 71046-26; 80053; 81001; 84484; 85025; 86140; 87428-QW; 93005; 99284

== ENCOUNTER 2024-12-03 13:27 | Emergency (ER) | payer MEDICARE, MEDICAID ==
[2024-12-03 14:16] VITALS: BP 168/91; PULSE 82
[2024-12-03 15:08] LABS: APPEARANCE,URINE CLEAR (CLEAR); GLUCOSE,URINE NEGATIVE (NEGATIVE); OCCULT BLOOD,URINE TRACE-INTACT (NEGATIVE)
[2024-12-03 15:26] LABS: CORONAVIRUS COVID-19 NAA NEGATIVE (NEGATIVE); INFLUENZA A NAA NEGATIVE (NEGATIVE); INFLUENZA B NAA NEGATIVE (NEGATIVE); RESPIRATORY SYNCYTIAL VIR NAA NEGATIVE (NEGATIVE)
[2024-12-03 15:28] LABS: SQUAMOUS EPITHELIAL CELLS,UR RARE /HPF
[2024-12-03 15:29] LABS: UROTHELIAL CELLS,URINE FEW /HPF
[2024-12-03 16:40] LABS: BASOPHILS ABSOLUTE AUTO 0.04 K/uL (0.00-0.10); BASOPHILS PERCENT AUTO 0.7 % (0.1-1.3); EOSINOPHILS ABSOLUTE AUTO 0.08 K/uL (0.00-0.40); EOSINOPHILS PERCENT AUTO 1.4 % (0.0-5.4); IMMATURE GRAN PERCENT AUTO 0.2 % (0.0-0.7); LYMPHOCYTES ABSOLUTE AUTO 1.23 K/uL (0.8-3.3); LYMPHOCYTES PERCENT AUTO 21.8 % (11.4-47.7); MONOCYTES ABSOLUTE AUTO 0.42 K/uL (0.20-0.90); MONOCYTES PERCENT AUTO 7.5 % (3.3-12.6); NEUTROPHILS ABSOLUTE AUTO 3.85 K/uL (1.0-7.6); NEUTROPHILS PERCENT AUTO 68.4 % (40.0-78.1); PLATELET COUNT,PLT 262 K/uL (130-375); RED BLOOD CELL COUNT 4.21 M/uL (3.77-5.24); WHITE BLOOD CELL COUNT,WBC 5.6 K/uL (3.2-11.0)
[2024-12-03 16:44] LABS: IMMATURE GRAN ABSOLUTE AUTO 0.01 K/uL (0.00-0.23)
[2024-12-03 17:00] LABS: A/G RATIO 1.2 (1.2-2.2); ALANINE AMINOTRANSFERASE,ALT 28 U/L (12-78); ASPARTATE AMNIOTRANSFERASE,AST 25 U/L (15-37); BILIRUBIN TOTAL 0.3 mg/dL (0.2-1.0); BLOOD UREA NITROGEN,BUN 9 mg/dL (7-18); CARBON DIOXIDE,CO2 32 mmol/L (21-32); CHLORIDE,CL 103 mmol/L (100-108); CREATININE 0.8 mg/dL (0.6-1.0); EST CRCL DRUG DOSING (CG) 41.62 mL/min; ESTIMATED GFR 74 mL/min (>60); GLUCOSE RANDOM 90 mg/dL (74-106); POTASSIUM,K 4.1 mmol/L (3.6-5.2); PROTEIN TOTAL,TP 6.7 g/dL (6.4-8.2); SODIUM,NA 139 mmol/L (140-148)
== END 2024-12-03 17:54 | disposition home or self-care (01) ==
LOC: JP.ED 13:27
DX: R53.81 Other malaise (principal); Z88.1 Allergy status to other antibiotic agents; Z88.0 Allergy status to penicillin; Z88.2 Allergy status to sulfonamides; Z91.0110 Allergy to milk products, unspecified; Z88.5 Allergy status to narcotic agent; Z88.8 Allergy status to other drugs, medicaments and biological substances; Z79.899 Other long term (current) drug therapy; Z90.49 Acquired absence of other specified parts of digestive tract; Z90.710 Acquired absence of both cervix and uterus
CPT/HCPCS: 36415; 71045; 71045-26; 80053; 81001; 83605; 83735; 85025; 86140; 87637; 99285

== ENCOUNTER 2024-12-07 05:15 | Emergency (ER) | payer MEDICARE, MEDICAID ==
[2024-12-07 05:59] VITALS: BP 159/93; PULSE 95
== END 2024-12-07 07:03 | disposition home or self-care (01) ==
LOC: JP.ED 05:15
DX: R20.2 Paresthesia of skin (principal); F41.9 Anxiety disorder, unspecified; Z88.8 Allergy status to other drugs, medicaments and biological substances; Z88.0 Allergy status to penicillin; Z91.0110 Allergy to milk products, unspecified; Z91.018 Allergy to other foods; Z79.899 Other long term (current) drug therapy; Z90.49 Acquired absence of other specified parts of digestive tract; Z90.710 Acquired absence of both cervix and uterus
CPT/HCPCS: 99283; A9270

== ENCOUNTER 2025-01-08 13:31 | Emergency (ER) | payer MEDICARE, MEDICAID ==
[2025-01-08 13:38] VITALS: BP 167/67; PULSE 73
[2025-01-08 13:59] LABS: BASOPHILS PERCENT AUTO 0.3 % (0.1-1.3); EOSINOPHILS ABSOLUTE AUTO 0.10 K/uL (0.00-0.40); EOSINOPHILS PERCENT AUTO 1.4 % (0.0-5.4); IMMATURE GRAN PERCENT AUTO 0.3 % (0.0-0.7); LYMPHOCYTES ABSOLUTE AUTO 1.40 K/uL (0.8-3.3); LYMPHOCYTES PERCENT AUTO 19.9 % (11.4-47.7); MONOCYTES ABSOLUTE AUTO 0.37 K/uL (0.20-0.90); MONOCYTES PERCENT AUTO 5.3 % (3.3-12.6); NEUTROPHILS ABSOLUTE AUTO 5.13 K/uL (1.0-7.6); NEUTROPHILS PERCENT AUTO 72.8 % (40.0-78.1); PLATELET COUNT,PLT 279 K/uL (130-375); RED BLOOD CELL COUNT 4.08 M/uL (3.77-5.24); WHITE BLOOD CELL COUNT,WBC 7.0 K/uL (3.2-11.0)
[2025-01-08 14:04] LABS: BASOPHILS ABSOLUTE AUTO 0.02 K/uL (0.00-0.10); IMMATURE GRAN ABSOLUTE AUTO 0.02 K/uL (0.00-0.23)
[2025-01-08] MEDS ORDERED: Lidocaine 2% 30 ML, Alum Hydrox/Mag Hydrox/Simeth 30 ML, diphenhydrAMINE 75 MG PO ONE (14:17)
[2025-01-08 14:29] LABS: A/G RATIO 1.0 (1.2-2.2); ALANINE AMINOTRANSFERASE,ALT 33 U/L (12-78); ASPARTATE AMNIOTRANSFERASE,AST 26 U/L (15-37); BILIRUBIN TOTAL 0.4 mg/dL (0.2-1.0); BLOOD UREA NITROGEN,BUN 16 mg/dL (7-18); CARBON DIOXIDE,CO2 28 mmol/L (21-32); CHLORIDE,CL 102 mmol/L (100-108); CREATININE 0.8 mg/dL (0.6-1.0); EST CRCL DRUG DOSING (CG) 43.12 mL/min; ESTIMATED GFR 74 mL/min (>60); GLUCOSE RANDOM 132 mg/dL (74-106); POTASSIUM,K 3.8 mmol/L (3.6-5.2); PROTEIN TOTAL,TP 6.9 g/dL (6.4-8.2); SODIUM,NA 139 mmol/L (140-148); TROPONIN I HIGH SENSITIVITY 7.8 pg/mL (<=60.3)
[2025-01-08] MEDS: Simethicone 125 MG Tab.Chew PO SCH (14:43)
[2025-01-08] MEDS: Lidocaine 2% 30 ML, Alum Hydrox/Mag Hydrox/Simeth 30 ML, diphenhydrAMINE 75 MG PO ONE (14:45)
[2025-01-08 15:55] LABS: APPEARANCE,URINE CLEAR (CLEAR); GLUCOSE,URINE NEGATIVE (NEGATIVE); OCCULT BLOOD,URINE NEGATIVE (NEGATIVE)
[2025-01-08 16:07] LABS: SQUAMOUS EPITHELIAL CELLS,UR NOT SEEN /HPF; UROTHELIAL CELLS,URINE NOT SEEN /HPF
[2025-01-08 16:35] LABS: CORONAVIRUS COVID-19 NAA NEGATIVE (NEGATIVE); INFLUENZA A NAA NEGATIVE (NEGATIVE); INFLUENZA B NAA NEGATIVE (NEGATIVE); RESPIRATORY SYNCYTIAL VIR NAA NEGATIVE (NEGATIVE)
== END 2025-01-08 17:20 | disposition home or self-care (01) ==
LOC: JP.ED 13:31
DX: R13.10 Dysphagia, unspecified (principal); E86.0 Dehydration; R42 Dizziness and giddiness; Z88.0 Allergy status to penicillin; Z88.8 Allergy status to other drugs, medicaments and biological substances; Z91.018 Allergy to other foods; Z90.49 Acquired absence of other specified parts of digestive tract; Z90.710 Acquired absence of both cervix and uterus
CPT/HCPCS: 36415; 71046; 80053; 81001; 83605; 84439; 84443; 84484; 85025; 87637; 93005; 96374; 99284; A9270; J2470

== ENCOUNTER 2025-01-12 09:45 | Emergency (ER) | payer MEDICARE, MEDICAID ==
[2025-01-12 10:54] LABS: BASOPHILS ABSOLUTE AUTO 0.02 K/uL (0.00-0.10); BASOPHILS PERCENT AUTO 0.3 % (0.1-1.3); EOSINOPHILS ABSOLUTE AUTO 0.07 K/uL (0.00-0.40); EOSINOPHILS PERCENT AUTO 1.0 % (0.0-5.4); IMMATURE GRAN ABSOLUTE AUTO 0.01 K/uL (0.00-0.23); IMMATURE GRAN PERCENT AUTO 0.1 % (0.0-0.7); LYMPHOCYTES ABSOLUTE AUTO 1.02 K/uL (0.8-3.3); LYMPHOCYTES PERCENT AUTO 14.5 % (11.4-47.7); MONOCYTES ABSOLUTE AUTO 0.51 K/uL (0.20-0.90); MONOCYTES PERCENT AUTO 7.3 % (3.3-12.6); NEUTROPHILS ABSOLUTE AUTO 5.39 K/uL (1.0-7.6); NEUTROPHILS PERCENT AUTO 76.8 % (40.0-78.1); PLATELET COUNT,PLT 248 K/uL (130-375); RED BLOOD CELL COUNT 3.98 M/uL (3.77-5.24); WHITE BLOOD CELL COUNT,WBC 7.0 K/uL (3.2-11.0)
[2025-01-12 11:15] LABS: A/G RATIO 1.0 (1.2-2.2); ALANINE AMINOTRANSFERASE,ALT 32 U/L (12-78); ASPARTATE AMNIOTRANSFERASE,AST 28 U/L (15-37); BILIRUBIN TOTAL 0.3 mg/dL (0.2-1.0); BLOOD UREA NITROGEN,BUN 12 mg/dL (7-18); CARBON DIOXIDE,CO2 28 mmol/L (21-32); CHLORIDE,CL 105 mmol/L (100-108); CREATININE 0.8 mg/dL (0.6-1.0); EST CRCL DRUG DOSING (CG) 41.62 mL/min; ESTIMATED GFR 74 mL/min (>60); GLUCOSE RANDOM 65 mg/dL (74-106); POTASSIUM,K 4.0 mmol/L (3.6-5.2); PROTEIN TOTAL,TP 6.6 g/dL (6.4-8.2); SODIUM,NA 141 mmol/L (140-148)
[2025-01-12 11:23] VITALS: BP 149/89; PULSE 66
[2025-01-12 11:34] LABS: GLUCOSE,URINE NEGATIVE (NEGATIVE); OCCULT BLOOD,URINE SMALL (NEGATIVE)
[2025-01-12 11:41] LABS: APPEARANCE,URINE SLIGHTLY CLOUDY (CLEAR); SQUAMOUS EPITHELIAL CELLS,UR RARE /HPF; UROTHELIAL CELLS,URINE NOT SEEN /HPF
== END 2025-01-12 12:10 | disposition home or self-care (01) ==
LOC: JP.ED 09:45
DX: R42 Dizziness and giddiness (principal); N39.0 Urinary tract infection, site not specified; Z90.49 Acquired absence of other specified parts of digestive tract; Z90.710 Acquired absence of both cervix and uterus; Z88.0 Allergy status to penicillin; Z88.2 Allergy status to sulfonamides; Z88.5 Allergy status to narcotic agent; Z88.8 Allergy status to other drugs, medicaments and biological substances; Z91.018 Allergy to other foods; Z79.899 Other long term (current) drug therapy
CPT/HCPCS: 36415; 70450; 80053; 81001; 85025; 87086; 87088; 87186; 99283; 99285; J7030

== ENCOUNTER 2025-01-12 17:19 | Emergency (ER) | payer MEDICARE, MEDICAID ==
[2025-01-12 18:31] VITALS: BP 145/86; PULSE 74
== END 2025-01-12 18:30 | disposition home or self-care (01) ==
LOC: JP.ED 17:19
DX: T78.40XA Allergy, unspecified, initial encounter (principal); K21.9 Gastro-esophageal reflux disease without esophagitis; Z79.899 Other long term (current) drug therapy; Z91.018 Allergy to other foods; Z88.0 Allergy status to penicillin; Z88.8 Allergy status to other drugs, medicaments and biological substances; Z88.2 Allergy status to sulfonamides; Z91.0110 Allergy to milk products, unspecified; Z90.49 Acquired absence of other specified parts of digestive tract; Z90.710 Acquired absence of both cervix and uterus
CPT/HCPCS: 99283

== ENCOUNTER 2025-01-13 17:55 | Emergency (ER) | payer MEDICARE, MEDICAID ==
[2025-01-13 18:11] VITALS: BP 164/94; PULSE 80
[2025-01-13] MEDS ORDERED: Simethicone 125 MG Tab.Chew PO ONE (18:36)
== END 2025-01-13 18:58 | disposition home or self-care (01) ==
LOC: JP.ED 17:55
DX: F41.9 Anxiety disorder, unspecified (principal); Z88.8 Allergy status to other drugs, medicaments and biological substances; Z88.1 Allergy status to other antibiotic agents; Z91.018 Allergy to other foods; Z88.0 Allergy status to penicillin; Z88.2 Allergy status to sulfonamides; Z91.0110 Allergy to milk products, unspecified; Z79.899 Other long term (current) drug therapy; Z90.49 Acquired absence of other specified parts of digestive tract; Z90.89 Acquired absence of other organs
CPT/HCPCS: 99283; 99284

== ENCOUNTER 2025-01-15 08:28 | Emergency (ER) | payer MEDICARE, MEDICAID ==
[2025-01-15 09:01] LABS: BASOPHILS PERCENT AUTO 0.3 % (0.1-1.3); EOSINOPHILS ABSOLUTE AUTO 0.04 K/uL (0.00-0.40); EOSINOPHILS PERCENT AUTO 0.7 % (0.0-5.4); IMMATURE GRAN PERCENT AUTO 0.3 % (0.0-0.7); LYMPHOCYTES ABSOLUTE AUTO 0.83 K/uL (0.8-3.3); LYMPHOCYTES PERCENT AUTO 13.6 % (11.4-47.7); MONOCYTES ABSOLUTE AUTO 0.34 K/uL (0.20-0.90); MONOCYTES PERCENT AUTO 5.6 % (3.3-12.6); NEUTROPHILS ABSOLUTE AUTO 4.84 K/uL (1.0-7.6); NEUTROPHILS PERCENT AUTO 79.5 % (40.0-78.1); PLATELET COUNT,PLT 246 K/uL (130-375); RED BLOOD CELL COUNT 3.98 M/uL (3.77-5.24); WHITE BLOOD CELL COUNT,WBC 6.1 K/uL (3.2-11.0)
[2025-01-15 09:03] LABS: BASOPHILS ABSOLUTE AUTO 0.02 K/uL (0.00-0.10); IMMATURE GRAN ABSOLUTE AUTO 0.02 K/uL (0.00-0.23)
[2025-01-15 09:17] LABS: A/G RATIO 1.1 (1.2-2.2); ALANINE AMINOTRANSFERASE,ALT 33 U/L (12-78); ASPARTATE AMNIOTRANSFERASE,AST 25 U/L (15-37); BILIRUBIN TOTAL 0.5 mg/dL (0.2-1.0); BLOOD UREA NITROGEN,BUN 9 mg/dL (7-18); CARBON DIOXIDE,CO2 26 mmol/L (21-32); CHLORIDE,CL 103 mmol/L (100-108); CREATININE 0.8 mg/dL (0.6-1.0); ESTIMATED GFR 74 mL/min (>60); GLUCOSE RANDOM 137 mg/dL (74-106); POTASSIUM,K 3.6 mmol/L (3.6-5.2); PROTEIN TOTAL,TP 6.6 g/dL (6.4-8.2); SODIUM,NA 140 mmol/L (140-148)
[2025-01-15 09:44] LABS: APPEARANCE,URINE CLEAR (CLEAR); GLUCOSE,URINE NEGATIVE (NEGATIVE); OCCULT BLOOD,URINE TRACE-INTACT (NEGATIVE)
[2025-01-15 09:51] LABS: SQUAMOUS EPITHELIAL CELLS,UR NOT SEEN /HPF; UROTHELIAL CELLS,URINE NOT SEEN /HPF
[2025-01-15] MEDS: Fluconazole/Normal Saline 400 MG in Premix Bag 1 BAG IV ONE (11:04)
[2025-01-15 11:45] VITALS: BP 179/101; PULSE 83
== END 2025-01-15 13:26 | disposition home or self-care (01) ==
LOC: JP.ED 08:28
DX: R09.A2 Foreign body sensation, throat (principal); Z88.8 Allergy status to other drugs, medicaments and biological substances; Z88.1 Allergy status to other antibiotic agents; Z91.018 Allergy to other foods; Z88.2 Allergy status to sulfonamides; Z88.0 Allergy status to penicillin; Z91.0110 Allergy to milk products, unspecified; Z79.899 Other long term (current) drug therapy; Z90.49 Acquired absence of other specified parts of digestive tract; Z90.89 Acquired absence of other organs
CPT/HCPCS: 36415; 80053; 81001; 85025; 96365; 96366; 99284-25; A9270-GY; J1450

== ENCOUNTER 2025-01-16 09:02 | Day surgery (SDC) | payer MEDICARE, MEDICAID ==
[2025-01-16] MEDS: Lactated Ringers 1,000 ML IV SCH (09:33)
[2025-01-16] MEDS ORDERED: fentaNYL 50 MCG/ML SDV ONE (10:48)
[2025-01-16] MEDS ORDERED: Propofol 200 MG/20 ML SDV ONE (10:48)
[2025-01-16 12:19] VITALS: PULSE 73
[2025-01-16 13:26] VITALS: BP 140/78
== END 2025-01-16 13:34 | disposition home or self-care (01) ==
LOC: JP.SDS 09:02
PROVIDERS: ATTEND Surgery
DX: K22.70 Barrett's esophagus without dysplasia (principal); Z90.49 Acquired absence of other specified parts of digestive tract; Z88.8 Allergy status to other drugs, medicaments and biological substances; Z88.2 Allergy status to sulfonamides; Z88.0 Allergy status to penicillin; Z91.018 Allergy to other foods; Z79.899 Other long term (current) drug therapy
CPT/HCPCS: 00731; 43239; 88305; J2704; J3010; J7120

== ENCOUNTER 2025-01-28 19:20 | Emergency (ER) | payer MEDICARE, MEDICAID ==
[2025-01-29] MEDS: Alum Hydrox/Mag Hydrox/Simeth 15 ML, Lidocaine 2% 15 ML PO ONE
[2025-01-29] MEDS: Simethicone 125 MG Tab.Chew PO ONE (00:36)
[2025-01-29 02:53] VITALS: BP 100/73; PULSE 83
== END 2025-01-29 02:51 | disposition home or self-care (01) ==
LOC: JP.ED 19:20
DX: K44.9 Diaphragmatic hernia without obstruction or gangrene (principal); K22.9 Disease of esophagus, unspecified; E86.0 Dehydration; Z88.0 Allergy status to penicillin; Z88.1 Allergy status to other antibiotic agents; Z88.2 Allergy status to sulfonamides; Z88.8 Allergy status to other drugs, medicaments and biological substances; Z91.0110 Allergy to milk products, unspecified; Z91.018 Allergy to other foods; Z79.899 Other long term (current) drug therapy; Z90.49 Acquired absence of other specified parts of digestive tract; Z90.710 Acquired absence of both cervix and uterus
CPT/HCPCS: 74018; 74220; 96374; 99284; A9270; J2470

== ENCOUNTER 2025-01-31 03:41 | Emergency (ER) | payer MEDICARE, MEDICAID ==
[2025-01-31 04:43] LABS: BASOPHILS PERCENT AUTO 0.4 % (0.1-1.3); EOSINOPHILS ABSOLUTE AUTO 0.06 K/uL (0.00-0.40); EOSINOPHILS PERCENT AUTO 1.3 % (0.0-5.4); IMMATURE GRAN PERCENT AUTO 0.2 % (0.0-0.7); LYMPHOCYTES ABSOLUTE AUTO 0.79 K/uL (0.8-3.3); LYMPHOCYTES PERCENT AUTO 17.2 % (11.4-47.7); MONOCYTES ABSOLUTE AUTO 0.29 K/uL (0.20-0.90); MONOCYTES PERCENT AUTO 6.3 % (3.3-12.6); NEUTROPHILS ABSOLUTE AUTO 3.41 K/uL (1.0-7.6); NEUTROPHILS PERCENT AUTO 74.6 % (40.0-78.1); PLATELET COUNT,PLT 274 K/uL (130-375); RED BLOOD CELL COUNT 4.01 M/uL (3.77-5.24); WHITE BLOOD CELL COUNT,WBC 4.6 K/uL (3.2-11.0)
[2025-01-31] MEDS: LORazepam 2 MG/ML SDV IM ONE (04:52)
[2025-01-31 05:04] LABS: A/G RATIO 1.2 (1.2-2.2); ALANINE AMINOTRANSFERASE,ALT 38 U/L (12-78); ASPARTATE AMNIOTRANSFERASE,AST 29 U/L (15-37); BILIRUBIN TOTAL 0.5 mg/dL (0.2-1.0); BLOOD UREA NITROGEN,BUN 12 mg/dL (7-18); CARBON DIOXIDE,CO2 28 mmol/L (21-32); CHLORIDE,CL 104 mmol/L (100-108); CREATININE 0.7 mg/dL (0.6-1.0); EST CRCL DRUG DOSING (CG) 48.71 mL/min; ESTIMATED GFR 87 mL/min (>60); GLUCOSE RANDOM 109 mg/dL (74-106); POTASSIUM,K 3.5 mmol/L (3.6-5.2); PROTEIN TOTAL,TP 6.4 g/dL (6.4-8.2); SODIUM,NA 142 mmol/L (140-148)
[2025-01-31 05:22] LABS: BASOPHILS ABSOLUTE AUTO 0.02 K/uL (0.00-0.10); IMMATURE GRAN ABSOLUTE AUTO 0.01 K/uL (0.00-0.23)
[2025-01-31 06:03] VITALS: BP 125/76; PULSE 77
== END 2025-01-31 07:06 | disposition home or self-care (01) ==
LOC: JP.ED 03:41
DX: F41.9 Anxiety disorder, unspecified (principal); R14.2 Eructation; K21.9 Gastro-esophageal reflux disease without esophagitis; Z88.5 Allergy status to narcotic agent; Z88.8 Allergy status to other drugs, medicaments and biological substances; Z88.1 Allergy status to other antibiotic agents; Z88.0 Allergy status to penicillin; Z91.0110 Allergy to milk products, unspecified; Z88.2 Allergy status to sulfonamides; Z79.899 Other long term (current) drug therapy; Z90.89 Acquired absence of other organs
CPT/HCPCS: 36415; 80053; 83605; 85025; 99283; 99284